=== PATIENT | male | born 1990 | race Caucasian/White ===

== ENCOUNTER 2016-06-08 02:41 | Inpatient (IN) | payer OTHER ==
[2016-06-08] VITALS (11 sets, daily range): BP systolic 112–149; BP diastolic 63–97
[~2016-06-08] VITALS: Ht 182.9 cm; Wt 99.8 kg
--- NOTE | 2016-06-08 02:58 | ED PSYCHIATRIC COMPLAINT ---
See Addendum History of Present Illness General Chief Complaint: ETOH/Drug Related Complaint Stated Complaint: BIBA ETOH,+SI Source: patient, old records, EMS Exam Limitations: intoxication Vital Signs & Intake/Output Vital Signs & Intake/Output Vital Signs Date Time Temp Pulse Resp B/P Pulse O2 O2 Flow FiO2 Ox Delivery Rate 06/08 0634 97.2 73 18 104/52 99 Room Air 06/08 0256 97.3 81 16 126/63 96 Room Air Allergies Coded Allergies: shellfish derived (Intermediate, ANAPHYLAXIS 08/20/15) fluticasone (From FLONASE) (OPPOSITE REACTION - EYES WATER, NOSE IS STUFFY, STUFFY THROA 08/19/15) Reconcile Medications No Known Home Medications Triage Note: PT BIBA S/P DUI ARREST FOR +SI STATEMENTS. PT PAPERED BY PD. DENIES SI UPON ARRIVAL. DENIES HI. HX OF MENTAL ILLNESS, DEPRESSION AND BIPOLAR. PT REPORTS DRINKING 6 BEERS AND 2 NIPS AND 1 LINE OF COCAINE. Triage Nurses Notes Reviewed? yes Onset: Last week Duration: day(s):, constant, continues in ED Timing: recent history Severity: moderate Associated Symptoms: suicidal ideation HPI: Stopped for driving under the influence and told officer he has been suicidal for the last several days. Admits to alcohol and marijuana cocaine use He denies fever chills nausea vomiting diarrhea abdominal pain chest pain shortness of breath headache dysuria rash bleeding homicidal ideation hallucination. (TELMA BERTRAND MD) Past History Travel History Traveled to [place] past 21 day No Medical History Any Pertinent Medical History? see below for history Neurological: NONE EENT: NONE Cardiovascular: NONE Respiratory: NONE Gastrointestinal: NONE Hepatic: NONE Renal: NONE Musculoskeletal: NONE Psychiatric: alcohol dependence, anxiety, bipolar disease, depression, substance abuse Endocrine: NONE Blood Disorders: NONE Cancer(s): NONE History of MRSA: No History of VRE: No History of CDIFF: No Surgical History Surgical History: non-contributory Psychosocial History Who do you live with Family Services at Home None What is your primary language Bruneian Tobacco Use: Current Daily Use Daily Tobacco Use Amount/Type: => 5 Cigarettes daily ETOH Use: heavy use Illicit Drug Use: cocaine Family History Hx Contributory? No (TELMA BERTRAND MD) Review of Systems Review of Systems Constitutional: Reports: no symptoms. EENTM: Reports: no symptoms. Respiratory: Reports: no symptoms. Cardiovascular: Reports: no symptoms. GI: Reports: no symptoms. Genitourinary: Reports: no symptoms. Musculoskeletal: Reports: no symptoms. Skin: Reports: no symptoms. Neurological/Psychological: Reports: see HPI, confusion, depressed, emotional problems. Hematologic/Endocrine: Reports: no symptoms. Immunologic/Allergic: Reports: no symptoms. All Other Systems: Reviewed and Negative (TELMA BERTRAND MD) Physical Exam Physical Exam General Appearance: well developed/nourished, alert, awake, anxious, mild distress Head: atraumatic, normal appearance Eyes: Bilateral: normal appearance, PERRL, EOMI. Ears, Nose, Throat: normal pharynx, normal ENT inspection, hearing grossly normal Neck: normal inspection, supple Respiratory: normal breath sounds Cardiovascular: regular rate/rhythm Gastrointestinal: soft, non-tender Extremities: normal range of motion Neurological/Psychiatric: no motor/sensory deficits, awake, agitated, alert, anxious, autotransfusionist II-XII nml as tested, oriented x 3 Appearance/Memory/Insight: disheveled, impaired insight Behavoir/Eye Contact/Speech: cooperative, compulsive, increased rate of speech Thoughts/Hallucinations: no apparent hallucination Skin: intact, normal color, warm/dry SAD PERSONS Done? patient not suicidal (TELMA BERTRAND MD) Progress Differential Diagnosis: drug intoxication, drug overdose, drug withdrawal, electrolyte abnormality, hypoglycemia Plan of Care: Orders Procedure Date/time Status Regular Diet 06/09 B Active Regular Diet 06/08 L Active Admit to inpatient psych 06/08 0858 Active Patient Data - inpatient psych 06/08 953 Active Admit to inpatient psych 06/08 953 Active EKG 06/08 953 Active Continuous Observation Monitor 06/08 0655 Active Continuous Observation Monitor 06/08 025 Active ED CRISIS PSYCH CONSULT 06/09 255 Active URINE DRUGS OF ABUSE 06/08 025 Complete ETHANOL 06/09 251 Complete COMPREHENSIVE METABOLIC PANEL 06/09 251 Complete CBC WITHOUT DIFFERENTIAL 06/09 251 Complete Vital Signs 06/08 UNK Active Nursing Misc 06/08 UNK Active CIWA 06/08 UNK Active Alternative Nursing Therapy 06/08 UNK Active Activity/Ambulation 06/08 UNK Active Current Medications Sig/Tayler Start time Last Medication Dose Stop Time Status Admin Al Hydroxide/Mg 30 ML Q4-6 PRN PRN 06/08 1000 AC Hydroxide (Maalox Plus) Ibuprofen 400 MG Q6PRN PRN 06/08 1000 UNVr (Motrin) Lorazepam 1 MG Q2 HRS NEEDED PRN 06/08 1000 UNVr (Ativan) Lorazepam 2 MG Q2 HRS NEEDED PRN 06/08 1000 UNVr (Ativan) Trazodone HCl 50 MG AT BEDTIME NEED.. 06/08 1000 UNVr (Desyrel) Laboratory Tests 06/08/16 0301: Anion Gap 17 H, Estimated GFR > 60, BUN/Creatinine Ratio 13.3, Glucose 93, Calcium 9.4, Total Bilirubin 0.5, AST 87 H, ALT 171 H, Alkaline Phosphatase 70 , Total Protein 7.7, Albumin 4.6, Globulin 3.1, Albumin/Globulin Ratio 1.5, CBC w Diff NO MAN DIFF REQ, RBC 5.79, MCV 91.5, MCH 30.3, RDW 13.4, MPV 7.8, Gran % 43.7, Lymphocytes % 45.7, Monocytes % 7.7, Eosinophils % 2.1, Basophils % 0.8, Absolute Granulocytes 4.2, Absolute Lymphocytes 4.4 H, Absolute Monocytes 0.7 H, Absolute Eosinophils 0.2, Absolute Basophils 0.1, PUBS MCHC 33.1, Serum Alcohol 216.0 06/08/16 0256: Methadone Screen Cancelled, Barbiturate Screen Cancelled, Ur Phencyclidine Scrn Cancelled, Amphetamines Screen Cancelled, U Benzodiazepines Scrn Cancelled, Urine Cocaine Screen Cancelled, Urine Cannabis Screen Cancelled 06/08/16 0253: Urine Opiates Screen < 100.00, Methadone Screen < 40, Barbiturate Screen < 60, Ur Phencyclidine Scrn < 6.00, Amphetamines Screen 113, U Benzodiazepines Scrn < 85, Urine Cocaine Screen > 1000 H, Urine Cannabis Screen > 80.00 H 06/08/2016 7:34:19 AM Patient signed out to me by Dr. Bertrand. Pending crisis evaluation. (DENTON MUNOZ,UYEN) Hand-Off Endorsed To: UYEN CHAWLA MD Endorsed Time: 0700 Pending: consult (TELMA BERTRAND MD) Departure Departure Disposition: STILL A PATIENT Condition: Stable Clinical Impression Primary Impression: Bipolar disorder current episode depressed Qualifiers: Current episode severity: severe Psychotic features: without psychotic features Qualified Code: F31.4 - Bipolar disorder, current episode depressed, severe, without psychotic features Secondary Impressions: Alcohol intoxication delirium, Cocaine abuse, Marijuana abuse, Suicidal ideation Referrals: ROSALBA ACOSTA MD Departure Forms: Customer Survey General Discharge Information Prescriptions: Current Visit Scripts No Known Home Medications (TELMA BERTRAND MD) Departure Time of Disposition: 957 Psych Admission Note Psychiatric Admission: I have seen and evaluated STEPHON ANAND. I have also reviewed all the pertinent lab results and diagnostic results. STEPHON ANAND will be admitted to our inpatient Psychiatric unit for treatment and care. (DENTON MUNOZ,UYEN)
[2016-06-08 03:25] LABS: ABSOLUTE BASOPHIL COUNT 0.1 /CUMM (0.0-0.2); ABSOLUTE EOSINOPHIL COUNT 0.2 /CUMM (0.0-0.7); ABSOLUTE GRANULOCYTE CT 4.2 /CUMM (1.4-6.5); ABSOLUTE LYMPH COUNT 4.4 /CUMM (1.2-3.4); ABSOLUTE MONOCYTE COUNT 0.7 /CUMM (0.10-0.60); BASOPHIL % 0.8 % (0.0-2.0); EOSINOPHIL % 2.1 % (0-5); GRANULOCYTE % 43.7 % (42.2-75.2); MEAN CORPUSCULAR HGB 30.3 PG (27.0-31.0); MEAN CORPUSCULAR HGB CONC 33.1 G/DL (33.0-37.0); MEAN CORPUSCULAR VOLUME 91.5 FL (80.0-94.0); MEAN PLATELET VOLUME 7.8 FL (7.4-10.4); PLATELET COUNT 248 /CUMM (130-400); RBC DISTRIBUTION WIDTH 13.4 % (11.5-14.5); RED BLOOD CELL CT 5.79 /CUMM (4.70-6.10); WHITE BLOOD CELL COUNT 9.6 /CUMM (4.8-10.8)
--- NOTE | 2016-06-08 08:55 | ED PSYCH CRISIS CONSULTATION ---
See Addendum Crisis Consult Basic Assessment Date of Consult: 06/08/16 Responsible Person/Accompanied By: self Insurance Authorization: Insurance #1: Insurance name: SHAILA CABALLERO Phone number: Policy number: [id number] Group number: Authorization number: ED Provider: Patient's ED Provider: TELMA BERTRAND MD Primary Care Physician: Patient's PCP: PATIENT HAS NO PRIMARY CARE DR PCP's Phone Number: Current Psychiatrist: none Chief Complaint: ETOH/Drug Related Complaint Patient's Quote: "I have suicidal thoughts non-stop" Present Illness: Pt. was a 25 year old , bearded male brought in to the ED after being pulled over by police for a DUI where he disclosed to the police that he had been feeling suicidal. He was not arrested or given a court date and was brought instead to the ED. Pt. reported he had been feeling suicidal for "years" and he had several attempts, one being a "couple months ago" when he "put a brick on his gas pedal in the garage" but the car during the attempt. Client stated in a very non-emotional and matter of fact way that he felt so suicidal that he would attempt in any way possible if released naming 'walking out into traffic or sticking his hand in a toaster' as methods of suicide. Pt. stated he spends most of his time "getting fucked up" so he doesn't have to feel anything. He stated he uses mainly alcohol and cocaine, last use being last night when he drank "alot" of alcohol and used 'a little" cocaine. He stated he used ecstasy "sometimes". Pt. reported he is diagnosed with Bipolar disorder and he attended [facility] in the past, as recently as last week but he stated he stopped going there because they "kept trying to feed him lithium" of which he stated the side effects were so bad (dry bleeding mouth, kidney problems and frequent blood tests). He stated he is not in treatment now. Patient's Address: [address] [place] [address] Other Phone Number: Who Do You Live With? Family Family/Informants Interviewed: Father interviewed. Mr. Santo Medeiros reported that his 25 year old adopted son had been having problems since he was a teenager. He stated his son "could potentially kill himself or someone else" with the way that he drives intoxicated. Father reported that son "goes off the deep end" frequently and drinks too much and threatens suicide. He stated his son lies often and it is difficult to tell when he is telling the truth. Father reported an incident a couple weeks ago when his son called him intoxicated from a parking lot and he spoke with him on the phone until he returned home and then spoke with him at home for another 2 hours because his son "needed to talk", he described significant mental health problems that neither he nor his could handle. he stated his son had attended a psychologist (name unknown) in [place] on Thursday "to get professional help". Father expressed desire to be invovled in his son's treatment if he was hospitalized here. Allergies - Coded Allergies: shellfish derived (Intermediate, ANAPHYLAXIS 08/20/15) fluticasone (From FLONASE) (OPPOSITE REACTION - EYES WATER, NOSE IS STUFFY, STUFFY THROA 08/19/15) Current Medications - No Known Home Medications Laboratory Results: Laboratory Tests 06/08/16 0301: Anion Gap 17 H, Estimated GFR > 60, BUN/Creatinine Ratio 13.3, Glucose 93, Calcium 9.4, Total Bilirubin 0.5, AST 87 H, ALT 171 H, Alkaline Phosphatase 70 , Total Protein 7.7, Albumin 4.6, Globulin 3.1, Albumin/Globulin Ratio 1.5, CBC w Diff NO MAN DIFF REQ, RBC 5.79, MCV 91.5, MCH 30.3, RDW 13.4, MPV 7.8, Gran % 43.7, Lymphocytes % 45.7, Monocytes % 7.7, Eosinophils % 2.1, Basophils % 0.8, Absolute Granulocytes 4.2, Absolute Lymphocytes 4.4 H, Absolute Monocytes 0.7 H, Absolute Eosinophils 0.2, Absolute Basophils 0.1, PUBS MCHC 33.1, Serum Alcohol 216.0 06/08/16 0256: Methadone Screen Cancelled, Barbiturate Screen Cancelled, Ur Phencyclidine Scrn Cancelled, Amphetamines Screen Cancelled, U Benzodiazepines Scrn Cancelled, Urine Cocaine Screen Cancelled, Urine Cannabis Screen Cancelled 06/08/16 0253: Urine Opiates Screen < 100.00, Methadone Screen < 40, Barbiturate Screen < 60, Ur Phencyclidine Scrn < 6.00, Amphetamines Screen 113, U Benzodiazepines Scrn < 85, Urine Cocaine Screen > 1000 H, Urine Cannabis Screen > 80.00 H Past History Past Medical History Neurological: NONE EENT: NONE Cardiovascular: NONE Respiratory: NONE Gastrointestinal: NONE Hepatic: NONE Renal: NONE Musculoskeletal: NONE Psychiatric: alcohol dependence, anxiety, bipolar disease, depression, substance abuse Endocrine: NONE Blood Disorders: NONE Cancer(s): NONE Past Surgical History Surgical History: non-contributory Psychosocial History Strengths/Capabilities: Pt has a supportive family. Pt is able to articulate his wants and needs. Pt has sought help and been engaged in treatment before in the past. Physical Limitations (Interventions): None identified Psychiatric Treatment History Psych Treatment Psychiatric Treatment Yes Inpatient Treatment Yes Outpatient Treatment Yes Location of Treatment [facility], Psychologist in [place] Reason for Treatment Bipolar Dates of Treatment various Response to Treatment doesn't stay in treatment Diagnosis by History: Bipolar D/O, ADHD Substance Use/Abuse History Drug Use/Abuse Substances Used/Abused Yes Substance Used/Abused Alcohol First Use unk Last Used last night How much used/taken "a lot" How often daily For how long "years" Substance Abuse Treatment Substance Abuse Treatment Past Substance Abuse [place] No Inpatient Treatment No Outpatient Treatment Yes Location of Treatment [facility] Current Mental Status Mental Status Orientation: Person, Place, Situation Affect: Flat, Inappropriate Speech: WNL Neuro-vegetative: Sleep Disturbance, WNL Appearance Appearance- Dress/Hygiene: neat haircut and greene trim, in hospital gown, no eye contact Behaviors Thought Process: WNL Thought Content: WNL Memory: WNL Insight: Poor SI/HI Risk Assessment Past Suicidal Ideation/Attempts Yes Current Suicidal Ideation/Att Yes Past Homicidal Ideation/Att: No Current Homicidal Ideation/Attempts No Degree of Intent: Plan, States Intent Danger To: Self Gravely Disabled: Lack of Insight, Poor Impulse Control, Poor Judgment Risk Factors: access to lethal means, high anxiety/distress, history of suicide atmpts, SA/MH hospitalized, poor impulse control, male Lethality Ratin PTSD Checklist PTSD Score: PTSD Score: Response Value Disturbing memories,thoughts,images of stressful experience? Not at all 1 Disturbing dreams of stressful experience from past? Not at all 1 Suddenly acting/feeling as if reliving stressful experience? Not at all 1 Unpleasant feeling when reminded of stressful experience? Not at all 1 Physical reactions when reminded of stressful experience? Not at all 1 Avoid thinking/talking of stressful exp. to avoid reactions? Not at all 1 Avoid activities/situations that remind of stressful exp.? Not at all 1 Trouble remembering important parts of stressful experience? Not at all 1 Loss of interest in things that you used to enjoy? Not at all 1 Feeling distant or cut off from other people? Not at all 1 Feeling emotionally numb/unable to love those close to you? Not at all 1 Feeling as if your future will somehow be cut short? Not at all 1 Trouble falling or staying asleep? Not at all 1 Feeling irritable or having angry outbursts? A little bit 2 Having difficulty concentrating? Not at all 1 Being super alert or watchful on guard? Not at all 1 Feeling jumpy or easily startled? Not at all 1 Total 18 ED Management Sitter: Yes Restraints: No DSM5/PS Stressors/Medical Prob Diagnosis' (DSM 5, Stressors, Medical): F31.4 Bipolar Disorder most recent depressed; Severe F10.24 Alcohol Use Disorder Severe F60.9 Personality unspec. Current GAF: 35 Departure Disposition Psych Medical Clearance Date: 06/08/16 Date Disposition Established: 06/08/16 Time Disposition Established: 943 Plan for Disposition - Modality: Inpatient Psychiatry Facility: [facility] Follow-up Appt Date: 06/08/16 Rationale for Disposition: Although pt. seems to be a significant substance abuser with a history of lying and manipulation, pt. is strongly expressing SI with a plan to "do anything in his power to commit suicide". Pt. to be admitted to inpatient. Type of IP Admission: Voluntary Referrals PATIENT HAS NO PRIMARY CARE DR (PCP/Family)
--- NOTE | 2016-06-08 10:11 | IP CRISIS DIAG ASSESS PSYCH ---
See Addendum Diagnostic Assessment Basic Assessment Patient's Quote: "I have suicidal thoughts non-stop" Present Illness: Pt. was a 25 year old , bearded male brought in to the ED after being pulled over by police for a DUI where he disclosed to the police that he had been feeling suicidal. He was not arrested or given a court date and was brought instead to the ED. Pt. reported he had been feeling suicidal for "years" and he had several attempts, one being a "couple months ago" when he "put a brick on his gas pedal in the garage" but the car during the attempt. Client stated in a very non-emotional and matter of fact way that he felt so suicidal that he would attempt in any way possible if released naming 'walking out into traffic or sticking his hand in a toaster' as methods of suicide. Pt. stated he spends most of his time "getting fucked up" so he doesn't have to feel anything. He stated he uses mainly alcohol and cocaine, last use being last night when he drank "alot" of alcohol and used 'a little" cocaine. He stated he used ecstasy "sometimes". Pt. reported he is diagnosed with Bipolar disorder and he attended Care in the past, as recently as last week but he stated he stopped going there because they "kept trying to feed him lithium" of which he stated the side effects were so bad (dry bleeding mouth, kidney problems and frequent blood tests). He stated he is not in treatment now. Patient's Address: [address] [place] [address] Other Phone Number: Who Do You Live With? Family Feel Safe Where You Live? Yes Feel Safe in Your Relationship Yes Marital Status: single Do You Have Children? No Primary Language? Greenlandic Language(s) Spoken At Home: Greenlandic Family/Informants Interviewed: Father interviewed. Mr. Santo Medeiros reported that his 25 year old adopted son had been having problems since he was a teenager. He stated his son "could potentially kill himself or someone else" with the way that he drives intoxicated. Father reported that son "goes off the deep end" frequently and drinks too much and threatens suicide. He stated his son lies often and it is difficult to tell when he is telling the truth. Father reported an incident a couple weeks ago when his son called him intoxicated from a parking lot and he spoke with him on the phone until he returned home and then spoke with him at home for another 2 hours because his son "needed to talk", he described significant mental health problems that neither he nor his could handle. he stated his son had attended a psychologist (name unknown) in [place] on Thursday "to get professional help". Father expressed desire to be invovled in his son's treatment if he was hospitalized here. Father stated son is adopted and alluded to the fact that his biological mother may have had mental health and substance abuse issues, stating that she had lived in the area but her body was found (murdered) in a quarry in [place] "a couple years ago ". Allergies - Coded Allergies: shellfish derived (Intermediate, ANAPHYLAXIS 08/20/15) fluticasone (From FLONASE) (OPPOSITE REACTION - EYES WATER, NOSE IS STUFFY, STUFFY THROA 08/19/15) Current Medications - No Known Home Medications Consequences of Psych Med Use: non-compliant Lab Results: Laboratory Tests 06/08/16 0301: Anion Gap 17 H, Estimated GFR > 60, BUN/Creatinine Ratio 13.3, Glucose 93, Calcium 9.4, Total Bilirubin 0.5, AST 87 H, ALT 171 H, Alkaline Phosphatase 70 , Total Protein 7.7, Albumin 4.6, Globulin 3.1, Albumin/Globulin Ratio 1.5, CBC w Diff NO MAN DIFF REQ, RBC 5.79, MCV 91.5, MCH 30.3, RDW 13.4, MPV 7.8, Gran % 43.7, Lymphocytes % 45.7, Monocytes % 7.7, Eosinophils % 2.1, Basophils % 0.8, Absolute Granulocytes 4.2, Absolute Lymphocytes 4.4 H, Absolute Monocytes 0.7 H, Absolute Eosinophils 0.2, Absolute Basophils 0.1, PUBS MCHC 33.1, Serum Alcohol 216.0 06/08/16 0256: Methadone Screen Cancelled, Barbiturate Screen Cancelled, Ur Phencyclidine Scrn Cancelled, Amphetamines Screen Cancelled, U Benzodiazepines Scrn Cancelled, Urine Cocaine Screen Cancelled, Urine Cannabis Screen Cancelled 06/08/16 0253: Urine Opiates Screen < 100.00, Methadone Screen < 40, Barbiturate Screen < 60, Ur Phencyclidine Scrn < 6.00, Amphetamines Screen 113, U Benzodiazepines Scrn < 85, Urine Cocaine Screen > 1000 H, Urine Cannabis Screen > 80.00 H Toxicology Screen Completed? Yes Results: positive Symptoms of Use: "heartburn everyday and puking" which client attributed only to heartburn but may be due to daily heavy drinking. Past History Past Medical History Medical History: Unobtainable Past Surgical History Surgical History none Abuse/Trauma History Trauma History/Current Trauma: Denies Patient's Age at Time of Trauma: 0 History of Trauma/Abuse Treatment? No Abuse/Trauma Treatment: Denies, pt states he is trying the ebst he can to answer questions but is feelign tired. Legal History Current Legal Status: none Have you ever been arrested? Yes Number of Arrests: [address] Dates: Client was pulled over on a DUI but was not arrested or given a court date but was brought to the ED for SI. Psychosocial History Strengths/Capabilities: Pt has a supportive family. Pt is able to articulate his wants and needs. Pt has sought help and been engaged in treatment before in the past. Physical Limitations (Interventions): None identified Psychiatric Treatment History Psych Treatment Psychiatric Treatment Yes Inpatient Treatment Yes Outpatient Treatment Yes Location of Treatment [facility], Psychologist in [place] Reason for Treatment Bipolar Dates of Treatment various Response to Treatment doesn't stay in treatment Diagnosis by History: Bipolar D/O, ADHD Risk Factors: access to lethal means, high anxiety/distress, history of suicide atmpts, SA/MH hospitalized, poor impulse control, male Substance Use/Abuse History Drug Use/Abuse minimum 12mo Hx Substances Used/Abused Yes Substance Used/Abused Alcohol First Use unk Last Used last night How much used/taken "a lot" How often daily For how long "years" Substance Abuse Treatment Substance Abuse Treatment Past Substance Abuse [place] No Inpatient Treatment No Outpatient Treatment Yes Location of Treatment [facility] Sexual History Sexually Active No # of partners 2 Use of Protection Yes Sometimes Sexual Concerns: None at this time Education History Highest Level of Education: some college Preferred Learning Style: visual Current Mental Status Mental Status Orientation: Person, Place, Situation Affect: Flat, Inappropriate Speech: WNL Neuro-vegetative: Sleep Disturbance, WNL Appearance Appearance- Dress/Hygiene: neat haircut and greene trim, in hospital gown, no eye contact Behaviors Thought Process: WNL Thought Content: WNL Memory: WNL Insight: Poor SI/HI Risk Assessment - Minimum 6mo History- Past Suicidal Ideation/Attempts Yes Current Suicidal Ideation/Att Yes Past Homicidal Ideation/Att: No Current Homicidal Ideation/Attempts No Degree of Intent: Plan, States Intent Danger To: Self Gravely Disabled: Lack of Insight, Poor Impulse Control, Poor Judgment Risk Factors: access to lethal means, high anxiety/distress, history of suicide atmpts, SA/MH hospitalized, poor impulse control, male Lethality Ratin Needs/Init TX Plan/Goals: pt. will acclimate to the inpatient milieu Pt. will meet with SW and psychiatrist Pt. will attend groups on unit. Pt. will be invovled in family treatment while on unit. AUDIT-C Questionnaire: AUDIT-C Questionnaire: Response Value ETOH use in the past year 4 or more per week 4 # drinks typical/day 7-9 3 6 or > drinks per occasion Daily/Almost Daily 4 Total 11 DSM5/PS Stressors/Medical Prob Diagnosis' (DSM 5, Stressors, Medical): F31.4 Bipolar Disorder most recent depressed; Severe F10.24 Alcohol Use Disorder Severe F60.9 Personality unspec. Current GAF: 35
--- NOTE | 2016-06-08 14:19 | History & Physical ---
General Information and HPI History of Present Illness: Patient is a 25-year-old male medical history significant for bipolar disorder, polysubstance abuse and alcohol dependence. He was pulled over by police for driving on the influence at which point he disclosed the police that he was feeling suicidal. He was not taken to the police station borrows rather brought to the emergency room where he reported feeling suicidal for several years with attempts in the past and recently. Was admitted to the inpatient psychiatric service for further management. Patient reports that in January 2016 when being worked up for admission to a alf he was found to be PPD positive. He had no respiratory complaints other than his chronic cough related to chronic smoking. Chest x-ray at the time was negative. These results are available here in our system. He was started on INH to complete 9 months of therapy. He reports that he has been poorly compliant with his medication recently. Last pharmacy refill was back in April. Denies nausea or vomiting. Denies diarrhea or constipation. Denies bloody stools or black stools. Denies dysuria or hematuria. Denies heat or cold intolerance. Admits to chronic cough productive of white phlegm. Reports cramping chest pain on the left occasionally following repeated coughing. All other review of systems dementia. Allergies/Medications Allergies: Coded Allergies: shellfish derived (Intermediate, ANAPHYLAXIS 08/20/15) fluticasone (From FLONASE) (OPPOSITE REACTION - EYES WATER, NOSE IS STUFFY, STUFFY THROA 08/19/15) Home Med list No Known Home Medications Past History Travel History Traveled to [place] past 21 day No Medical History Neurological: NONE EENT: NONE Cardiovascular: NONE Respiratory: NONE Gastrointestinal: NONE Hepatic: NONE Renal: NONE Musculoskeletal: NONE Psychiatric: alcohol dependence, anxiety, bipolar disease, depression, substance abuse Endocrine: NONE Blood Disorders: NONE Cancer(s): NONE Other Medical Hx: PPD positive History of MRSA: No History of VRE: No History of CDIFF: No Isolation History: Standard Surgical History Surgical History: non-contributory Past Family/Social History Psychosocial History Where do you live? Home Who Do You Live With? parent Services at Home: None Primary Language: Spanish ETOH Use: heavy use Illicit Drug Use: cocaine Functional Ability ADLs Independent: dressing, eating, toileting, bathing. Ambulation: independent IADLs Independent: shopping, housework, finances, food prep, telephone, transportation , medication admin. Review of Systems Review of Systems Constitutional: Denies: see HPI. Exam & Diagnostic Data Last 24 Hrs of Vital Signs/I&O Vital Signs Date Time Temp Pulse Resp B/P Pulse O2 O2 Flow FiO2 Ox Delivery Rate 06/08 1233 98.0 96 144/81 06/08 1140 97.3 100 16 116/64 04 1139 97.3 100 16 116/64 95 Room Air Room Air 06/08 1014 97.9 116 15 145/70 06/08 1011 97.9 116 15 145/70 97 Room Air Room Air 06/08 0634 97.2 73 18 104/52 99 Room Air 06/08 0256 97.3 81 16 126/63 96 Room Air Intake & Output 06/08 1600 06/08 0800 06/08 0000 Intake Total Output Total Balance Patient 99.79 kg 99.79 kg Weight Physical Exam General Appearance Alert, Oriented X3, Cooperative, No Acute Distress Skin No Rashes, No Breakdown, No Significant Lesion HEENT Atraumatic, PERRLA, EOMI, Mucous Membr. moist/pink Neck Supple, No thryomegaly, +2 Carotid Pulse wo Bruit Cardiovascular Regular Rate, Normal S1, Normal S2, No Murmurs Lungs Normal Air Movement, mild bilateral rhonchi. Abdomen Normal Bowel Sounds, Soft, right upper quadrant tenderness. No rebound or guarding. Liver edge palpable below the costophrenic angle. Neurological Exam Findings: Normal Gait, Normal Speech, Strength at 5/5 X4 Ext, Normal Tone Cranial Nerves II through XII: Within normal limits. Extremities No Clubbing, No Cyanosis, No Edema Vascular Normal Pulses Assessment/Plan Assessment: 25-year-old male with history of polysubstance abuse, bipolar disorder and alcoholism admitted to the inpatient psychiatric unit after being pulled over by police for DUI and then reporting suicide ideation. History of PPD positive in January 2016 on chronic INH therapy. Noncompliant. Found here to have transaminitis which is new from his last labs in August 2015 and tender liver on examination. Problems: 1. Transaminitis 2. PPD positive 3. Polysubstance abuse/alcohol abuse/bipolar disorder Plan: -Obtain right upper quadrant sonogram to rule out other structural hepatobiliary disease. -Obtain amylase and lipase levels. -Repeat LFTs tomorrow. -His father verbalizes a probably due to alcohol use given his significant history of alcohol abuse. He treats 1 pint of vodka daily. Also he reports not using his INH several weeks. However his transaminitis ratio is not consistent with alcohol. Cc darryl low uses medication in a while it is more prudent to continue to hold his INH while repeating his labs. I need therapy may be resumed upon discharge if the liver enzymes are trending down. His transaminitis remains significant at the time of discharge consideration has to be made for switching is latent TB therapy. -At this point in time there is no need for isolation precautions other than standard general precautions. -Please provide patient with a referral to the [facility] plan outpatient service upon discharge. He currently reports that he gets his prescription for INH from a walk-in clinic. -Continue management of his alcoholism, previous ulcers abuse and bipolar disorder as directed by the psychiatric service. As Ranked By This Provider Problem List: 1. Bipolar disorder 2. Alcohol intoxication Miscellaneous Miscellaneous Documentation Attending Case Discussed With: MYRIAM MUNOZ PHD,OSCAR MARCANO Primary Care Physician: PATIENT HAS NO PRIMARY CARE DR Patient sees these Specialists None. Level of Patient Care: [facility]
--- NOTE | 2016-06-08 14:19 | CPS MD/APRN INITIAL ASSE PSYCH ---
Psychiatric Admission Ammonium Hydroxide Operator's Note Reviewed: Yes Patient Seen and Examined: Yes Identifying Information: 25-year-old domiciled, unemployed, single man with long-standing history of severe substance use disorders including alcohol and cocaine as well as per patient dx of bipolar disorder. Chief Complaint: "I have suicidal thoughts nonstop " Reaction to Hospitalization: Patient requests inpatient hospitalization History of Present Illness Onset of Illness: Long-standing mood instability accompanied by severe alcohol and substance use Circumstances Leading to Admission: Patient was pulled over by police for driving erratically, found to be intoxicated, reported current suicidality and brought to [facility] for evaluation. On evaluation patient endorses severely depressed mood with suicidal thoughts with plan to harm himself and reported recent attempts to harm himself. This is in the context of ongoing substance use and history of risk- taking behaviors. Problem(s) Justifying Need for Admission: Depressed mood, suicidal ideation with plan and intent, reported recent attempts to harm or kill himself. Past Psychiatric History Past Diagnosis(es)- if any: Bipolar disorder, unspecified Alcohol use disorder, severe Stimulant use disorder (cocaine), severe Past Precipitating Factors- if any: Substance abuse - Include inpatient and outpatient treatment Treatment History: Most recent known inpatient psychiatric hospitalization is to [facility] in August 2015. At that time he presented to the hospital under very similar circumstances including depression with suicidal ideation in context of ongoing alcohol use. He was treated with an Ativan taper started on lithium and Zyprexa was continued, he was discharged on lithium 750 mg twice a day as well as Zyprexa 15 mg nightly. Most recently outpatient treatment through care which he is recently discontinued as care wanted him to continue taking lithium which the patient refuses to do due to side effects In terms of substance use treatment, was referred to AA meetings after his current hospitalization, as well as previously attended a program at [facility] for few days before leaving. History of Suicide Attempts or Gestures Reports multiple attempts to harm or kill himself in the past, including a most recent attempt to asphyxiate himself in a garage with the car Substance Abuse History: Chronic alcohol, cocaine, cannabis use Reports, "a lot "of alcohol daily, when asked him to clarify he reports "a bottle of liquor "a day. Also notes almost daily cocaine use, always insufflated, denies smoking or injecting cocaine. Daily or mostly daily cannabis use Allergies: Coded Allergies: shellfish derived (Intermediate, ANAPHYLAXIS 08/20/15) fluticasone (From FLONASE) (OPPOSITE REACTION - EYES WATER, NOSE IS STUFFY, STUFFY THROA 08/19/15) Home Med List: Denies taking any current home medications - Include any medical condition(s) that may - impact the patient's recovery/remission Past History Medical History Neurological: NONE EENT: NONE Cardiovascular: NONE Respiratory: NONE Gastrointestinal: NONE Hepatic: NONE Renal: NONE Musculoskeletal: NONE Psychiatric: alcohol dependence, anxiety, bipolar disease, depression, substance abuse Endocrine: NONE Blood Disorders: NONE Cancer(s): NONE History of MRSA: No History of VRE: No History of CDIFF: No Isolation History: Standard Surgical History Surgical History: none Psychiatric Family/Social Hx Family History Psychiatric Illness: Patient adopted Substance Use: Patient adopted Suicides: Patient adopted Social History Living Situation: Lives with family Significant Relationships (family/friends): Family Education: Says he has some college Vocation/Occupation: Currently unemployed Legal: Pulled over by police for erratic driving and contraband of influence however we have confirmed that he does not have any known court dates. This is confirmed by checking the [place] judicial website. Healthly Behaviors Screening Tobacco Screening Tobacco Use from ED Docu: Current Daily Use Daily Tobacco Use Amount/Type: => 5 Cigarettes daily - If tobacco counseling indicated - the following topics are required. - #1 Recognizing dangerous situations. - #2 Coping Skills. - #3 Basic information about quitting. Status of Tobacco Cessation Counseling: #1, #2 AND #3 Completed Cessation Med Status: Nicotine Patch Ordered Alcohol Screening - ETOH screen POS if BAL >=80 or Audit-C>= M4/F3 Audit-C Score from Diag Assess: 11 Blood Alcohol Level: Laboratory Tests 06/08 0301 Toxicology Serum Alcohol (<10 MG/DL) 216.0 Alcohol Use Screening Results: Pos per Audit C &/or BAL - If ETOH counseling indicated - the following topics are required. - #1 Express concern about the patient's - drinking at unhealthy levels, include informing - of national norms for moderate drinking: - men <= 14 drinks/week, max 4 drinks/occasion - women <= 7 drinks/week, max 3 drinks/occasion - #2 Providing feedback, including linking alcohol to - negative physical effects (liver injury, hypertension) - negative emotional effects (relationship problems and - depression) - negative occupational consequences (reduced work - performance) - #3 Advising the patient to abstain from alcohol or - to drink below national norms for moderate drinking - (as listed above). Status of ETOH Use Counseling: #1, #2 AND #3 Completed. Metabolic Screening - Screen if on a Neuroleptic Medication - Metabolic screening should include: - Blood Pressure, BMI, Glucose or Hgb A1c, & a - Lipid profile from within the past 365 days. Metabolic Screening () Not Applicable, patient not on a neuroleptic. Exam and Plan Mental Status Examination Ambulation Status: Stable Appearance: Disheveled Attitude towards examiner: Mildly uncooperative Psychomotor activity: Psychomotor retardation Behavior: Mainly laying on hospital bed Quality of speech: Robotic prosody Affect: Constricted, irritable Mood: "Depressed " Suicidal Ideation: Admits to suicidal ideation with intent to end his life via multiple plans Homicidal Ideation: Denies Hallucinations: Denies Paranoid/Delusional Material: Denies Difficulties with thought organization: Perhaps some impoverishment of thought but no overt difficulties with thought organization Insight: Limited Judgment: Limited Orientation: To person and place Cognition: Grossly intact Memory Function: Grossly intact Estimate of intellectual functioning: Average Assets/Strengths Patient Identified Assets/Strengths: Supportive family Impression/Plan Impression and Plan: 25-year-old man with history of unspecified bipolar disorder as well as severe alcohol and stimulant use disorders presenting to [facility] after an interaction with police where he was pulled over due to suspicion of driving under the influence and revealed ongoing severe depression and suicidality. His degree of depression as well as his endorsement of multiple attempts to recently end his life and description of again desiring to end his life warrants inpatient hospitalization for safety, especially in the context of significant alcohol and substance use. - Include all active medical diagnosis that require tx DSM 5 Diagnosis(es): Bipolar disorder, unspecified, most recent episode depressed Alcohol use disorder, severe Stimulant use disorder, severe cannabis use disorder, severe Nicotine use disorder - Initial Tx Plan for Active Psych & Medical Conditions Treatment Plan: Admit to inpatient psychiatry 15 minute checks appropriate Monitor CIWAs and medicate with benzodiazepines as needed Nicotine replacement Zyprexa when necessary for severe agitation Defer initiation of standing psychotropics to primary team Further collateral will be beneficial as well as family meeting Check TSH Identifying outpatient treatment resources - Factors that would help patient function - in a less restrictive setting. Factors: Amelioration of SI, improvement in mood, identification or outpatient treatment resources
[2016-06-09] VITALS (10 sets, daily range): BP systolic 106–156; BP diastolic 59–88
--- NOTE | 2016-06-09 07:55 | SOCIAL WORKER SOCIAL HX PSYCH ---
Social History Basic Assessment Curr Source of Income/Entitlements: basic needs (no income reported) Present Problem: Pt. was a 25 year old , bearded male brought in to the ED after being pulled over by police for a DUI where he disclosed to the police that he had been feeling suicidal. He was not arrested or given a court date and was brought instead to the ED. Pt. reported he had been feeling suicidal for "years" and he had several attempts, one being a "couple months ago" when he "put a brick on his gas pedal in the garage" but the car during the attempt. Client stated in a very non-emotional and matter of fact way that he felt so suicidal that he would attempt in any way possible if released naming 'walking out into traffic or sticking his hand in a toaster' as methods of suicide. Pt. stated he spends most of his time "getting fucked up" so he doesn't have to feel anything. He stated he uses mainly alcohol and cocaine, last use being last night when he drank "alot" of alcohol and used 'a little" cocaine. He stated he used ecstasy "sometimes". Pt. reported he is diagnosed with Bipolar disorder and he attended [facility] in the past, as recently as last week but he stated he stopped going there because they "kept trying to feed him lithium" of which he stated the side effects were so bad (dry bleeding mouth, kidney problems and frequent blood tests). He stated he is not in treatment now. Father interviewed. Mr. Santo Medeiros reported that his 25 year old adopted son had been having problems since he was a teenager. He stated his son "could potentially kill himself or someone else" with the way that he drives intoxicated. Father reported that son "goes off the deep end" frequently and drinks too much and threatens suicide. He stated his son lies often and it is difficult to tell when he is telling the truth. Father reported an incident a couple weeks ago when his son called him intoxicated from a parking lot and he spoke with him on the phone until he returned home and then spoke with him at home for another 2 hours because his son "needed to talk", he described significant mental health problems that neither he nor his could handle. he stated his son had attended a psychologist (name unknown) in [place] on [address] "to get professional help". Father expressed desire to be invovled in his son's treatment if he was hospitalized here. Father stated son is adopted and alluded to the fact that his biological mother may have had mental health and substance abuse issues, stating that she had lived in the area but her body was found (murdered) in a quarry in [place] "a couple years ago". HUSSEIN MIGUEL TURNAROUND ENGINEER> 06/08/16 Primary Language? Vietnamese Language(s) Spoken At Home: Vietnamese Living Situation Other Living Arrangement: lives with family Feel Safe Where You Are Living Yes Feel Safe in Relationships? Yes Allergies - Coded Allergies: shellfish derived (Intermediate, ANAPHYLAXIS 08/20/15) fluticasone (From FLONASE) (OPPOSITE REACTION - EYES WATER, NOSE IS STUFFY, STUFFY THROA 08/19/15) Current Medications - No Known Home Medications Past History Past Medical History Neurological: NONE EENT: NONE Cardiovascular: NONE Respiratory: NONE Gastrointestinal: NONE Hepatic: NONE Renal: NONE Musculoskeletal: NONE Psychiatric: alcohol dependence, anxiety, bipolar disease, depression, substance abuse Endocrine: NONE Blood Disorders: NONE Cancer(s): NONE Past Surgical History Surgical History: non-contributory /Family History Place/Country of Origin: [facility], [place] Childhood Family Constellation: parents and younger sister Primary Childhood Caretakers: father, mother Family Life During Childhood: "fine" DCF Involvement? No Relationship w/Mother: "we work together" Relationship w/Father: "we work good together, its fine" Any Sibling(s)? Yes Sibling's Gender(s)/Age(s): female Sibling 1: Relationship w/Sibling(s): "good" younger than me she is 21. Relationship w/Friends: No friends right now, I really have a hard time dealing with people. Family Psych/Sub Abuse/Add Hx: Denies Abuse/Trauma History Trauma History/Current Trauma: Denies Patient's Age at Time of Trauma: 0 History of Trauma/Abuse Treatment? No Abuse/Trauma Treatment: Denies, pt states he is trying the ebst he can to answer questions but is feelign tired. Legal History Legal Guardian/Address/Phone: Denies Have you ever been arrested Yes Number of Arrests: 1 Hx of Juvenile Legal Charges? No Hx of Adult Legal Charges? No Civil Proceedings: Denies Domestic Relations Court: Denies Child Protective Serv Involvmnt Denies Psychosocial History Primary Support System: father, mother Strengths/Capabilities: Pt has a supportive family. Pt is able to articulate his wants and needs. Pt has sought help and been engaged in treatment before in the past. Physical Limitations (Interventions): None identified Last Physical: 17 years old History of Blackouts? No ADL Limitations: Can't keep up with independent living skills when non compliant with meds and using etoh regularly. [place]/Social/Peer Relations I don't feel I can be social right now. Meaningful Activities: I cant think of any Childhood Druze: no gnosticist stated Current Moravian Affiliation: no gnosticist stated Is Spirituality Important to You? Not now. Patient's Ethnicity: ("Palauan") Cultural/Ethnic Issues: Denies Are There Developmental Issues? No Milestones Achieved: fine motor, gross motor Psychiatric Treatment History Psych Treatment Inpatient Treatment Yes Outpatient Treatment Yes Location of Treatment [facility], Psychologist in [place] Reason for Treatment Bipolar Dates of Treatment various Response to Treatment doesn't stay in treatment Diagnosis: Bipolar D/O, ADHD Psychodynamic Issues: Unsure [facility], and has not been sober since he was 15 years old. Risk Factors: access to lethal means, high anxiety/distress, history of suicide atmpts, SA/MH hospitalized, poor impulse control, male Substance Use/Abuse History Drug Use/Abuse Substance Used/Abused Alcohol First Use unk Last Used last night How much used/taken "a lot" How often daily For how long "years" Have You Ever Attended ? Yes Symptoms of Use: "heartburn everyday and puking" which client attributed only to heartburn but may be due to daily heavy drinking. Substance Abuse Treatment Substance Abuse Treatment Inpatient Treatment No Outpatient Treatment Yes Location of Treatment [facility] Sexual History Sexually Active No # of partners 2 Use of Protection Yes Sometimes Sexual Concerns: None at this time Education History Highest Level of Education: some college Highest Grade Completed: Semesters in [employer] Vocational Year Completed: Denies Number of College Years: 1 Preferred Learning Style: visual HX of Learning Difficulties: None reported Barriers to Learning: None reported Special Communication Needs: None reported Employment History Not in Labor Force: Pt just got a job at [employer] Attendance: Absenteeism Performance: Below Average History Have You Been in The ? No Current Mental Status Problem List: 1. Bipolar disorder 2. Suicidal ideation Mental Status Orientation: Person, Place, Situation Affect: Flat, Inappropriate Speech: WNL Neuro-vegetative: Sleep Disturbance, WNL Appearance Appearance- Dress/Hygiene: neat haircut and greene trim, in hospital gown, no eye contact Behaviors Thought Process: WNL Thought Content: WNL Memory: WNL Insight: Poor SI/HI Risk Assessment Past Suicidal Ideation/Attempts Yes Current Suicidal Ideation/Att Yes Past Homicidal Ideation/Att: No Current Homicidal Ideation/Attempts No Degree of Intent: Plan, States Intent Danger To: Self Gravely Disabled: Lack of Insight, Poor Impulse Control, Poor Judgment Risk Factors: High Anxiety/Distress, SA/MH Hospitalization(s), Hx of suicide attempt(s), Male, Poor impulse control, Substance Abuse Lethality Ratin - Conclusion and Recommendations for treatment - and discharge planning Summary: Pt. was a 25 year old , bearded male brought in to the ED after being pulled over by police for a DUI where he disclosed to the police that he had been feeling suicidal. He was not arrested or given a court date and was brought instead to the ED. Pt. reported he had been feeling suicidal for "years" and he had several attempts, one being a "couple months ago" when he "put a brick on his gas pedal in the garage" but the car during the attempt. Client stated in a very non-emotional and matter of fact way that he felt so suicidal that he would attempt in any way possible if released naming 'walking out into traffic or sticking his hand in a toaster' as methods of suicide. Pt. stated he spends most of his time "getting fucked up" so he doesn't have to feel anything. He stated he uses mainly alcohol and cocaine, last use being last night when he drank "alot" of alcohol and used 'a little" cocaine. He stated he used ecstasy "sometimes". Pt. reported he is diagnosed with Bipolar disorder and he attended [facility] in the past, as recently as last week but he stated he stopped going there because they "kept trying to feed him lithium" of which he stated the side effects were so bad (dry bleeding mouth, kidney problems and frequent blood tests). He stated he is not in treatment now. Father interviewed. Mr. Santo Medeiros reported that his 25 year old adopted son had been having problems since he was a teenager. He stated his son "could potentially kill himself or someone else" with the way that he drives intoxicated. Father reported that son "goes off the deep end" frequently and drinks too much and threatens suicide. He stated his son lies often and it is difficult to tell when he is telling the truth. Father reported an incident a couple weeks ago when his son called him intoxicated from a parking lot and he spoke with him on the phone until he returned home and then spoke with him at home for another 2 hours because his son "needed to talk", he described significant mental health problems that neither he nor his could handle. he stated his son had attended a psychologist (name unknown) in [place] on Thursday "to get professional help". Father expressed desire to be invovled in his son's treatment if he was hospitalized here. Father stated son is adopted and alluded to the fact that his biological mother may have had mental health and substance abuse issues, stating that she had lived in the area but her body was found (murdered) in a quarry in [place] "a couple years ago". HUSSEIN MIGUEL TURNAROUND ENGINEER> 06/08/16
--- NOTE | 2016-06-09 13:27 | CP SOUTH PROGRESS NOTE PSYCH ---
Psych (Inpt) Progress Note Progress Note Include the following elements, when applicable: Involvement in the active treatment of the patient with behavioral observations of the patient and the patient's response to the treatment. Review of the ongoing treatment process in the context of the treatment plan. Indication of how multi-disciplinary staff members are carrying out the treatment plan. Plans for future interventions and recommendations for revision of the treatment plan. Liaison with other physicians/providers. Progress Note: [I discussed this patient's progress to date, current mental status, treatment process in the context of the treatment plan, and discharge planning with staff/ team in the daily morning inpatient team meeting. I also met with the patient myself in individual session.] S: "I feel like sh*t." O: Current Medications Sig/Tayler Start time Last Medication Dose Route Stop Time Status Admin Al Hydroxide/Mg 30 ML Q4-6 PRN PRN 06/08 1000 AC Hydroxide PO Folic Acid 1 MG 06/09 09 AC 06/09 PO 06/12 0801 0940 Hydroxyzine HCl 50 MG Q6-PRN PRN 06/08 1615 AC 06/08 PO 1858 Ibuprofen 400 MG Q6PRN PRN 06/08 1000 AC 06/09 PO 1309 Lorazepam 0.5 MG 08,06/12 0800 AC PO 06/12 2000 Lorazepam 0.5 MG Q6 06/11 0600 AC PO 06/11 2359 Lorazepam 1 MG Q8 06/10 0600 AC PO 06/10 2201 Lorazepam 1 MG Q6 06/09 0915 AC 06/09 PO 06/09 2359 1230 Lorazepam 1 MG Q6-PRN PRN 06/08 1615 DC PO Lorazepam 1 MG Q2 HRS NEEDED PRN 06/08 1000 AC 06/08 PO 2152 Lorazepam 2 MG Q2 HRS NEEDED PRN 06/08 1000 AC 06/08 PO 1959 Multivitamins 1 TAB 06/09 0900 AC 06/09 PO 0940 Nicotine 2 MG Q2 HRS NEEDED PRN 06/08 1615 AC PO Nicotine 21 MG DAILY 06/08 1301 AC 06/09 TOP 0849 Olanzapine 5 MG 06/09 2200 AC PO Ondansetron HCl 4 MG ONCE ONE 06/09 1030 DC 06/09 PO 06/09 1031 1033 Thiamine HCl 100 MG 06/09 0900 AC 06/09 PO 06/12 0801 0939 Trazodone HCl 50 MG AT BEDTIME NEED.. 06/08 2200 AC PO Vital Signs Date Time Temp Pulse Resp B/P Pulse O2 O2 Flow FiO2 Ox Delivery Rate 06/09 1411 93 139/80 06/09 1232 98 109/59 06/09 1229 98 109/59 06/09 1022 97.1 95 141/78 06/09 0758 96.7 86 138/78 06/09 0756 96.7 86 138/78 06/08 2356 96.7 89 139/97 06/08 2307 68 127/63 06/08 2149 90 135/80 06/08 2010 98.1 97 149/83 06/08 2004 98.1 97 149/83 06/08 1656 99 132/78 06/08 1637 99 132/78 Laboratory Tests 06/09 06/08 06/08 0536 1500 1500 Chemistry Total Bilirubin (0.2 - 1.3 mg/dL) 0.9 Direct Bilirubin (< 0.4 mg/dL) 0.2 AST (17 - 59 U/L) 60 H ALT (21 - 72 U/L) 142 H Alkaline Phosphatase (< 127 U/L) 65 Total Protein (6.3 - 8.2 g/dL) 6.8 Albumin (3.5 - 5.0 g/dL) 4.1 Amylase (30 - 110 U/L) Cancelled < 30 L Lipase (23 - 300 U/L) 84 TSH (0.270 - 4.200 uIU/mL) 2.510 A: Chart, progress notes, VS, labs, CIWA scores (last 24 hours: 6-3-40-03-0-4-5-4-2 ), and medication list were reviewed. HR mildly tachy 95 -98. BP wnl. AST and ALT trending down but remain elevated. TSH wnl. Patient is a 25-year-old domiciled, unemployed, single man with long- standing history of severe alcohol and cocaine use disorder, and a history of bipolar disorder. He presented to ED by police after found intoxicated, driving erratically and reported SI. Patient had been previously hospitalized on [facility] in August 2015 for depression/SI in the setting of chronic alcohol use. He had been started on Zyprexa and Colcord with good effect; he also had been started on an ativan taper for alcohol withdrawal which was well tolerated. Patient reported recently discontinuing outpatient treatment at [facility] due to their recommendation that he remain on Colcord 750mg twice daily, which he refused given multiple vague side effects and difficulty adhering to routine blood draws. Patient reported he would not take any medications requiring blood work as it was too difficult for him to remember to complete. Met with Fernando, for the first time today on [facility]. He was initially observed resting in room but was arousable to voice and agreeable to meeting with me in office. Affect was calm and constricted. Speech was normal in rate, tone and volume. Eye contact was mostly appropriate, with occasional hesitance. Mood was "depressed." Reported being "tired of living like this (chronic drug/alcohol abuse)." Patient reported passive suicidal ideation, denied plans or intent. Reported endorsing chronic suicidal thoughts for "years". Reported no benefit from prior trial on Colcord, "only made me sick." He gave a safety promise while on unit and reported feeling safe here. He denied homicidal ideation, auditory and visual hallucinations. There was no evidence of paranoia or nilton delusions. He reported feeling hopeless about staying sober. He presently reported feeling helpless. He denied feeling worthless or guilty. Anixety: 7/10 (10 being the worst); Depression: 8/10 (10 being the worst). Thought process was organized. Thought content was appropriate. Cognition was grossly intact. Patient clarified he has been drinking >1pint daily over the last "couple months." Denied a history of DTs or withdrawal seizures. Patient was informed that he will be started on an Ativan taper in addition to being monitored on [facility] protocol. Patient verbalized understanding of instruction. Discussed possible medication trials to further target mood symptoms. Patient was not agreeable to any mood stabilizer requiring routine blood monitoring. I reviewed the risk/benefit/se profiles of Zyprexa, including risks of irreversible movement disorders, metabolic syndrome with weight gain, diabetes, hypertension, and hyperlipidemia. He was agreeable to restarting Zyprexa for mood stabilization/racing thoughts which he reported he tolerated well in the past. He was also agreeable to starting a SSRI following restart of Zyprexa. Will discuss SSRI options with patient tomorrow. P: 1. Continue monitoring patient on unit for safety, mood and suicidal ideation. 2. Continue monitoring patient on [facility] protocol for alcohol withdrawal. Continue ativan taper as ordered/ utilize prn Ativan per [facility] protocol. 3. Start Zyprexa 5mg QHS for mood stabilization/racing thoughts. Will likely increase as tolerated. 4. Will discuss SSRI options tomorrow to start to target depression. 5. US - Limited ABD ordered per Dr. Singleton to rule out other structural hepatobiliary disease. 6. Dispo planning per primary team.
--- NOTE | 2016-06-09 14:17 | SOCIAL WORKER PROG NOTE PSYCH ---
Social Work Progress Note Progress Note SW met with patient for the first time today. Patient reports feeling "sick" due to withdrawal and presented with depressed mood and affect. Patient shared about his alcohol use and the desire to obtain sobriety. He wishes to go to treatment at [facility] where he completed a phone screening last September. Patient was provided with the phone number to call again today in order to complete a new screening. He signed [facility] and I faxed his clinical information to their admission department for review. Patient is aware that there may be a bed wait at [facility]. He is not interested at staying at either [facility] while waiting for rehab. He states he can return home after discharge from the hospital and will stay sober by "not leaving the house." This job specification writer expressed concerns about this d/c plan but patient stated that he did not want to think about waiting at a place for rehab. He resides with his mother, sister and father. He reports that his sister and mother do not use alcohol/ drugs but his father drinks. He states that his father will not drink at the home though if patient were to return home. Patient agreed to have a family meeting during his hospitalization. This job specification writer left voicemail for patients mother inquiring about family meeting.
[2016-06-10] VITALS (9 sets, daily range): BP systolic 132–146; BP diastolic 70–88
--- NOTE | 2016-06-10 08:27 | CP SOUTH PROGRESS NOTE PSYCH ---
Psych (Inpt) Progress Note Progress Note Include the following elements, when applicable: Involvement in the active treatment of the patient with behavioral observations of the patient and the patient's response to the treatment. Review of the ongoing treatment process in the context of the treatment plan. Indication of how multi-disciplinary staff members are carrying out the treatment plan. Plans for future interventions and recommendations for revision of the treatment plan. Liaison with other physicians/providers. Progress Note: [I discussed this patient's progress to date, current mental status, treatment process in the context of the treatment plan, and discharge planning with staff/ team in the daily morning inpatient team meeting. I also met with the patient myself in individual session.] S: "I'm not feeling good this morning." O: Current Medications Sig/Tayler Start time Last Medication Dose Route Stop Time Status Admin Al Hydroxide/Mg 30 ML Q4-6 PRN PRN 06/08 1000 AC Hydroxide PO Escitalopram Oxalate 10 MG 0806/10 0800 AC PO Folic Acid 1 MG 0806/09 0900 AC 06/10 PO 06/12 0801 0808 Gabapentin 300 MG Q6P PRN 06/10 0815 AC PO Hydroxyzine HCl 50 MG Q6-PRN PRN 06/08 1615 DC 06/08 PO 1858 Ibuprofen 400 MG .STK-MED ONE 06/09 1300 DC PO 06/09 1301 Ibuprofen 400 MG Q6PRN PRN 06/08 1000 AC 06/09 PO 1309 Lorazepam 0.5 MG 0800,06/12 0800 AC PO 06/12 2000 Lorazepam 0.5 MG Q6 06/11 0600 AC PO 06/11 2359 Lorazepam 1 MG Q8 06/10 0600 AC 06/10 PO 06/10 2201 0605 Lorazepam 1 MG Q6 06/09 0915 DC 06/09 PO 06/09 2359 2318 Lorazepam 1 MG Q6-PRN PRN 06/08 1615 DC PO Lorazepam 1 MG Q2 HRS NEEDED PRN 06/08 1000 AC 06/08 PO 2152 Lorazepam 2 MG Q2 HRS NEEDED PRN 06/08 1000 AC 06/08 PO 1959 Multivitamins 1 TAB 0800 06/09 0900 AC 06/10 PO 0808 Nicotine 2 MG Q2 HRS NEEDED PRN 06/08 1615 AC PO Nicotine 21 MG DAILY 06/08 1301 AC 06/09 TOP 0849 Olanzapine 5 MG ONCE ONE 06/10 08 DC 06/10 PO 06/10 0801 0808 Olanzapine 5 MG Q6P PRN 06/11 799 AC PO Olanzapine 5 MG 06/09 AC 06/09 PO 2136 Ondansetron HCl 4 MG ONCE ONE 06/09 1030 DC 06/09 PO 06/09 1031 1033 Thiamine HCl 100 MG 06/09 09 AC 06/10 PO 06/12 0801 0808 Trazodone HCl 50 MG AT BEDTIME NEED.. 06/08 220 AC PO Vital Signs Date Time Temp Pulse Resp B/P Pulse O2 O2 Flow FiO2 Ox Delivery Rate 06/10 0748 97.1 66 133/70 06/10 0742 97.1 66 133/70 06/09 2000 98.4 97 106/88 06/09 1932 98.4 97 156/88 06/09 1606 98 136/75 06/09 1600 98 136/75 06/09 1508 Room Air Room Air 06/09 1411 93 139/80 06/09 1232 98 109/59 06/09 1229 98 109/59 06/09 1022 97.1 95 141/78 Lab Hep B Core IgM Ab Conf NONREACTIVE 06/09/1636 Hep Bs Antigen NONREACTIVE 06/09/16535 Hepatitis A IgM Ab NONREACTIVE 06/09/1636 Hepatitis C Antibody NONREACTIVE 06/09/16 0536 A: Chart, progress notes, VS, labs, CIWA scores (last 24 hours: 7-6-8-2-0-0-1), and medication list were reviewed. BP and HR wnl. CIWA scores improving. ABD US remains ordered and procedure pending. Met with patient this morning in office. He presented lethargic with down mood, sitting slouched in chair. Mood remained "depressed," labile, and impulsive; exhibiting a brief spontaneous episode of agitation in where he began yelling in office and smacking his hands against his head expressing disgust towards other patients "not leaving me alone...I want to eat breakfast without people talking to me...I want my own damn room." Patient deescalated with redirection, was able to follow short, firm prompts. Patient with poor insight into his anger and irritability, was unable to state triggers to feelings ? brought on by other patients. He denied homicidal ideation. When asked if he felt safe on unit, he passively reported "yes." He went on to state, "I'm here, there's no way for me to hurt myself." I asked patient how he would respond to having a 1:1 sitter. He reported "it would piss me off having someone in my space." At this time, I do not feel a 1:1 sitter would be therapeutic for patient. Patient verbalized he would approach staff if feeling agitated or endorsing homicidal/suicidal ideation. He denied active suicidal ideation, plans or intent while on unit. He reported passive suicidal ideation, however gave a safety promise while on unit. He denied auditory and visual hallucinations. He reported + racing thoughts, however would not elaborate on the content. He reported sleeping well last evening; but of note, reported having "good dreams" of him "suiciding." Patient did not further elaborate on the content of these dreams. He reported some mood lability prior to falling asleep last evening, reported "crying a lot" however showed limited insight into trigger of this. Thought process was linear. Thought content was depressed, sad, hopeless, helpless. Cognition was grossly intact. Patient continued to decline trial of [place] for mood stabilization and antisuicidal properties, and other mood stabilizers requiring routine blood monitoring. Additionally offered patient a trial of Haldol versus Zyprexa given less hepatic risk associated with Haldol to target mood stability, given mildly elevated LFTs. Patient however declined this medication, as he reported past positive efficacy on Zyprexa. He reported tolerating Zyprexa well and denied untoward medication effects. Reviewed the risks of increasing Zyprexa beyond 5mg daily for those with hepatic impairment (per Dr. Hernandez Caicedo, Essential Psychopharmacology, 5th edition ). Patient verbalized understanding of the risks, and was agreeable to increase. Will increase to 10mg QHS for mood stabilization, and will offer prn Zyprexa for agitation/impulsivity/racing thoughts. Patient was agreeable to starting trial of Lexapro for depression. The risk/ benefit/se profiles were reviewed with the patient who verbalized understanding and was agreeable to trial. Reviewed with the patient ABD US which remains scheduled to r/o other structural hepatobiliary disease. Patient reported he is refusing test as he does not want to wait further for procedure and miss further meals. Reviewed with the patient the importance of procedure and the risks of not completing procedure. Patient verbalized understanding of education; he again refused procedure. Patient was agreeable to having further blood work to monitor LFTs, and also gave permission for hepatitis testing. P: 1. Continue monitoring patient on unit for safety, mood, agitation, suicidal ideation. 2. Increase Zyprexa from 5mg to 10mg at bedtime for mood stabilization. Will start prn Zyprexa Q6H for agitation/impulsivity/racing thoughts. 3. Start Lexapro 10mg daily for depression. 4. Consider adding Lamictal daily for depression. 5. Family meeting with patient and mother today. 6. Dispo planning per primary team. 7. Rpt ALT/AST tomorrow morning. Ammonia level ordered for tomorrow morning.
--- NOTE | 2016-06-10 14:34 | SOCIAL WORKER TX PLAN PSYCH ---
Treatment Plan - Please Document: - Evidence that there is ongoing collaboration between - the patient and the interdisciplinary team, - including the patient's active participation and - responsibility for engaging in the treatment regimen, - and that the treatment plan is individualized and - relevant to the patient's conditions. - Treatment plan should reflect documentation indicating - that all active therapeutic efforts are included. Strengths/Capabilities: Pt has a supportive family. Pt is able to articulate his wants and needs. Pt has sought help and been engaged in treatment before in the past. Physical Limitations (Interventions): None identified Patient Identified Trmt Goals: "I want a better life for myself." Discharge Plan: [facility] Problem/Goals #1 Problem #1: suicidal ideation Goal (Short Term): Today I will attend 2 groups Today I will identify 2 stressors Today I will identify 2 positive supports Today I will work on recognizing 3 emotions I am feeling Goal (Store Worker): Be free of suicidal thoughts/attempts Develop 3 coping skills to deal with depression Identify 3 positive support systems to call in crisis Develop a crisis plan with 3 henderson people Identify 2 positive traits per week about myself Identify 2 things I have to look forward to Identify 2 positive people in my life and 1 thing I appreciate about them Interventions: Learn ways to manage depressive symptoms accordingly and identify positive supports to manage life stressors and mood fluctuations. Modalities: Encourage groups, education on depression, provide CBT treatment, family meeting. Problem/Goals #2 Problem #2: alcohol dependence/abuse Goal (Short Term): 1) Refrain from alcohol use 2) Identify 3 triggers for use 3) Identify 3 sober supports 4) Identify 3 coping skills Goal (Usp): I will have family meeting on unit during my hospitalization I will attend all AA groups on unit I will Identify 3 coping skills for cravings to use I will set up aftercare for dual diagnosis program to address both mental health and substance abuse concerns Interventions: Learn ways to manage cravings to use substances accordingly and identify coping skills to prevent relapse from occurring due to anxious/depressed feelings. Modalities: Encourage groups, education on addiction, provide CBT treatment, family meeting. DSM5/PS Stressors/Medical Prob Diagnosis' (DSM 5, Stressors, Medical): F31.4 Bipolar Disorder most recent depressed; Severe F10.24 Alcohol Use Disorder Severe F60.9 Personality unspec. Current GAF: 35 Treatment Team - Responsibilities of members of the treatment team include: - Medication Management- MD or APPLICATIONS ENGINEER MANUFACTURING - Medication Administration and Monitoring- Nurse - Group Therapy- Occupational Therapist - 1:1 Therapy,Disch Planning,family involvement-Apprenticeship Representative
--- NOTE | 2016-06-10 14:39 | SOCIAL WORKER PROG NOTE PSYCH ---
Social Work Progress Note Progress Note Patient presents irritable today with depressed mood and affect. Patient in bed all day, refusing groups and participating in any meetings. Patient allowed this creative writer and Janis Mckenzie APRN to have family meeting with his mother and his aunt. Together they expressed great concern for patients alcohol use and dangerous behaviors under the influecne of alcohol, such as driving under the influence and possible fire risk in the house due to leaving kitchen appliances unattended when under the influence. They are aware that as of now patient is not participating in his current treatment, aftercare planning and is resistent to any aftercare that does not permit cellphone use. Patient was informed by his mother last evening on the phone that he is not welcome back to the house until after he completes substance abuse treatment. Ever since this conversation patient has been extremely irritable and defiant with his treatment. Patient continues to present SI at present and refused to meet with his aunt and mother before they left the hospital today.
[2016-06-11] VITALS (8 sets, daily range): BP systolic 138–152; BP diastolic 72–90
--- NOTE | 2016-06-11 12:53 | CP SOUTH PROGRESS NOTE PSYCH ---
Psych (Inpt) Progress Note Progress Note Include the following elements, when applicable: Involvement in the active treatment of the patient with behavioral observations of the patient and the patient's response to the treatment. Review of the ongoing treatment process in the context of the treatment plan. Indication of how multi-disciplinary staff members are carrying out the treatment plan. Plans for future interventions and recommendations for revision of the treatment plan. Liaison with other physicians/providers. Progress Note: [I discussed this patient's progress to date, current mental status, treatment process in the context of the treatment plan, and discharge planning with staff/ team in the daily morning inpatient team meeting. I also met with the patient myself in individual session.] S: "I found a place to stay, with my lul [facility]ero." O: Current Medications Sig/Tayler Start time Last Medication Dose Route Stop Time Status Admin Al Hydroxide/Mg 30 ML Q4-6 PRN PRN 06/08 1000 AC Hydroxide PO Escitalopram Oxalate 10 MG 2100 06/11 2100 AC PO Escitalopram Oxalate 10 MG 0806/10 0800 DC 06/10 PO 1015 Folic Acid 1 MG 06/09 0900 AC 06/11 PO 06/12 0801 0836 Gabapentin 300 MG Q6P PRN 06/10 0815 AC PO Ibuprofen 400 MG Q6PRN PRN 06/08 1000 AC 06/09 PO 1309 Lorazepam 0.5 MG 08,06/12 0800 AC PO 06/12 2000 Lorazepam 0.5 MG Q6 06/11 0600 AC 06/11 PO 06/11 2359 1241 Lorazepam 1 MG Q8 06/10 0600 DC 06/10 PO 06/10 2201 2203 Lorazepam 1 MG Q2 HRS NEEDED PRN 06/08 1000 AC 06/08 PO 2152 Lorazepam 2 MG Q2 HRS NEEDED PRN 06/08 1000 AC 06/08 PO 1959 Multivitamins 1 TAB 06/09 0900 AC 06/11 PO 0836 Nicotine 2 MG Q2 HRS NEEDED PRN 06/08 1615 AC 06/11 PO 0901 Nicotine 21 MG DAILY 06/08 1301 AC 06/11 TOP 0836 Olanzapine 15 MG 2200 06/11 2200 AC PO Olanzapine 10 MG 2200 06/10 2200 DC 06/10 PO 2203 Olanzapine 5 MG Q6P PRN 06/10 0800 AC 06/10 PO 0836 Thiamine HCl 100 MG 0800 06/09 0900 AC 06/11 PO 06/12 0801 0836 Trazodone HCl 50 MG .STK-MED ONE 06/10 2245 DC PO 06/10 2246 Trazodone HCl 50 MG AT BEDTIME NEED.. 06/08 2200 DC 06/10 PO 2251 Laboratory Tests 06/11 0629 Chemistry AST (17 - 59 U/L) 72 H ALT (21 - 72 U/L) 169 H Ammonia (9 - 30 umol/L) 11 Vital Signs Date Time Temp Pulse Resp B/P Pulse O2 O2 Flow FiO2 Ox Delivery Rate 06/11 1243 92 152/82 06/11 1220 92 152/82 06/11 0756 96.8 82 138/74 06/11 0742 96.8 82 138/74 06/10 2012 97 146/88 06/10 1946 97.3 97 146/88 06/10 1536 87 142/76 06/10 1535 87 142/76 06/10 1432 77 145/77 A: Chart, progress notes, labs, VS, CIWA scores, and medication list were reviewed. AST and ALT remain elevated. Ammonia level wnl. Last 24 hours of CIWA: 2-2-1-2-2 -0. Met with patient 1:1 today. He presented calmer this morning in comparison to yesterday. He showed good behavioral and physical control. Mood was stable overall. He appeared more focused on himself and aftercare treatment today. He expressed not wanting to pursue rehab given that he would be unable to have his cell phone at residential rehab. He could not verbalize the significance of having his cell phone on him. He reported being agreeable to participating in a dual [facility]. He reported that he was invited to stay at his friend's home ([facility]) who is sober and a positive influence. He gave permission for primary team to speak to this friend to confirm plan. Tiffanie Bae LCSW and this report writer, together with the patient called Homero who the patient requested to temporarily stay with post-discharge. Homero reported that he would be glad to have the patient stay with him temporarily under the condition that he does not use alcohol or other substances, or bring any substances into his home. Homero was in favor of discharge plan for patient to follow-up at Dual [facility] and attend AA meetings. Homero also reported that he would assure that the patient stayed adherent to prescribed medications. The patient was also in favor of Homero partaking in his treatment post-discharge. Met individually again with patient later today. He reported feeling more hopeful and relieved that a discharge plan fell into place and one that he is agreeable to. He reported depression of 3/10 (10 being the worst) and anxiety of 5/10 (10 being the worst). He denied active and passive suicidal ideation, plans and intent. He denied feeling hopeless, helpless, worthless and guilty. He reported his sleep and appetite were good. He denied homicidal ideation. He was more visible in the milieu today; he was observed interacting with peers appropriately. He denied auditory and visual hallucinations. There was no evidence of paranoia or nilton delusions, or overt symptoms of claudia/hypomania. Speech was mildly hyperverbal at times. Thought process was goal-directed, linear. Thought content was treatment focused and optimistic. Cognition was grossly intact. Patient reported tolerating all medications well and denied untoward medication effects. He was agreeable to increase Zyprexa from 10mg to 15mg QHS for further mood stabilization. He further denied subjective reports of alcohol withdrawal and reported tolerating ativan taper well. P: 1. Continue monitoring patient on unit for safety, mood and suicidal ideation. 2. Increase Zyprexa from 10mg QHS to 15mg QHS for further mood stabilization. 3. Continue prn Zyprexa for agitation. 4. Continue CIWA protocol and Ativan taper as ordered for alcohol withdrawal. 5. [facility] IOP intake scheduled on 06/13/16 at 9:30AM.
--- NOTE | 2016-06-11 13:06 | SOCIAL WORKER PROG NOTE PSYCH ---
Social Work Progress Note Progress Note Patient presents today with brighter mood than yesterday, refraining from isolating in his room and is attending groups on the unit. Patient reports that he spoke with a sober friend who has offerred for patient to temporarily reside with him. Patient states that his friends family member had a hx of addiction and his friend has zero tolerance for substance use in the house or coming into the house under the influence. Patient states that he would like to attend IOP while residing with this friend. He is scheduled for an IOP intake on Thursday @ 9:30am. Patients mother is aware of patients aftercare plan and in support of it and still not allowing patient to return to her home. Patient denies any SI at present and is aware that we are tentatively planning for discharge for him this Thursday.
[2016-06-12] VITALS (8 sets, daily range): BP systolic 117–162; BP diastolic 68–80
--- NOTE | 2016-06-12 13:07 | CP SOUTH PROGRESS NOTE PSYCH ---
Psych (Inpt) Progress Note Progress Note Include the following elements, when applicable: Involvement in the active treatment of the patient with behavioral observations of the patient and the patient's response to the treatment. Review of the ongoing treatment process in the context of the treatment plan. Indication of how multi-disciplinary staff members are carrying out the treatment plan. Plans for future interventions and recommendations for revision of the treatment plan. Liaison with other physicians/providers. Progress Note: [I discussed this patient's progress to date, current mental status, treatment process in the context of the treatment plan, and discharge planning with staff/ team in the daily morning inpatient team meeting. I also met with the patient myself in individual session.] S: "I'm excited for discharge tomorrow!" O: Current Medications Sig/Tayler Start time Last Medication Dose Route Stop Time Status Admin Al Hydroxide/Mg 30 ML Q4-6 PRN PRN 06/08 1000 AC Hydroxide PO Escitalopram Oxalate 10 MG 2100 06/11 2100 AC 06/11 PO 212 Folic Acid 1 MG 06/09 DC 06/12 PO 06/12 0801 0806 Gabapentin 300 MG Q6P PRN 06/10 0815 AC PO Ibuprofen 400 MG Q6PRN PRN 06/08 1000 AC 06/09 PO 1309 Lorazepam 0.5 MG 799,06/12 AC 06/12 PO 06/12 2001 08 Lorazepam 0.5 MG Q6 06/11 0600 DC 06/11 PO 06/11 2359 2325 Lorazepam 1 MG Q2 HRS NEEDED PRN 06/08 1000 AC 06/08 PO 2152 Lorazepam 2 MG Q2 HRS NEEDED PRN 06/08 1000 AC 06/08 PO 1959 Multivitamins 1 TAB 06/09 0900 AC 06/12 PO 0806 Nicotine 2 MG Q2 HRS NEEDED PRN 06/08 1615 AC 06/12 PO 0849 Nicotine 21 MG DAILY 06/08 1301 AC 06/12 TOP 0806 Olanzapine 15 MG 06/11 AC 06/11 PO 2124 Olanzapine 5 MG Q6P PRN 06/10 0800 AC 06/10 PO 0836 Thiamine HCl 100 MG 06/09 09 DC 06/12 PO 06/12 0801 0806 Vital Signs Date Time Temp Pulse Resp B/P Pulse O2 O2 Flow FiO2 Ox Delivery Rate 06/12 1236 90 145/76 06/12 1212 90 145/76 06/12 0814 96.2 77 117/68 06/12 0735 96.2 77 117/68 06/11 1949 98.0 84 147/72 06/11 1934 98.0 84 147/72 06/11 1607 96 143/90 06/11 1600 96 143/90 A: Chart, progress notes, labs, VS, CIWA scores (not scoring over last 24 hours) and medication list were reviewed. Vital signs within normal limits. No new lab results today. Met with patient this afternoon 1:1. He reported feeling more tired this morning (likely from increase in Zyprexa). Despite feeling tired, he reports tolerating medications well. He also reported improved sleep. He showed improved insight into the impact of his drug/alcohol use on his mental and physical health. He expressed motivation to remain abstinent from all substances including cannabis. He shared that his friend Homero who he will be temporarily residing with post- discharge informed him that he will be held to a 10PM curfew every night for the time he lives in his home. Patient was agreeable to curfew and appears to see that his friend's efforts are to support his sobriety and mental health. Patient denied passive and active suicidal ideation, plans and intent. Denied homicidal ideation, AVH, PI/delusions. Speech was normal in rate, tone, and volume. Eye contact was appropriate. Ox4. Denied acute symptoms of anxiety/ depression. Thought process goal directed and linear. Thought content appropriate. Cognition grossly intact. No evidence of hypomanic/manic symptoms. Sleep and appetite stable. P: 1. Continue monitoring patient on unit for safety and mood. 2. Ativan taper will finish tonight. 3. Conitnue current medications. 4. Discharge tomorrow to [facility] intake at 9:30AM. 5. Outpatient appointment scheduled with senior front end developer Dr. Artemio Alfaro on 07/10/16 at 12:30PM for transaminitis. 6. Outpatient appointment scheduled with Dr. Willis on , 06/19/16 at 11AM to establish PCP and latent TB management.
--- NOTE | 2016-06-12 14:06 | SOCIAL WORKER PROG NOTE PSYCH ---
Social Work Progress Note Progress Note Discussed Fernando in team meeting with Janis Mckenzie APRN and staff. Met with Fernando , he denied intent or plan to harm himself. No AH/VH. He stated he plans to stay sober. He will attend [facility] program, has an intake on 06/13/16 at 9:30am. He was interested in information on DSS galindo assistance and fodo stamps. I gave him the website for DSS and online application for both. He stated he will apply. ALso gave him a contact for an attorny with [employer], Vida Bloom ESQ in [place] - she can talk with him regarding the disability process and guide him through. Fernando's mother phoned, Sadia and she left a voicmail earlier in the day. She called again, and I spoke with her - she is worried about Fernando's discharge tomorrow, tried to reassure her that he has a good plan to live with his friend and attend [facility]. She stated she hopes he stays sober and goes to the [facility]. Encouraged his Mother to consider Al-Anon and JASMIN as supports for herself.
[2016-06-13] MEDS ORDERED: ONE DAILY MULT1 EAC2 PO (07:07)
[2016-06-13 07:50] VITALS: BP 138/69
--- NOTE | 2016-06-13 07:57 | CP SOUTH PROGRESS NOTE PSYCH ---
Psych (Inpt) Progress Note Progress Note Include the following elements, when applicable: Involvement in the active treatment of the patient with behavioral observations of the patient and the patient's response to the treatment. Review of the ongoing treatment process in the context of the treatment plan. Indication of how multi-disciplinary staff members are carrying out the treatment plan. Plans for future interventions and recommendations for revision of the treatment plan. Liaison with other physicians/providers. Progress Note: [I discussed this patient's progress to date, current mental status, treatment process in the context of the treatment plan, and discharge planning with staff/ team in the daily morning inpatient team meeting. I also met with the patient myself in individual session.] S: "I feel a lot better, seriously. Thank you." O: Current Medications Sig/Tayler Start time Last Medication Dose Route Stop Time Status Admin Al Hydroxide/Mg 30 ML Q4-6 PRN PRN 06/08 1000 AC Hydroxide PO Escitalopram Oxalate 10 MG 2100 06/11 2100 AC 06/12 PO 2116 Gabapentin 300 MG Q6P PRN 06/10 0815 DC PO Ibuprofen 400 MG Q6PRN PRN 06/08 1000 AC 06/09 PO 1309 Lorazepam 0.5 MG 0800,06/12 0800 DC 06/12 PO 06/12 Lorazepam 1 MG Q2 HRS NEEDED PRN 06/08 1000 DC 06/08 PO 2152 Lorazepam 2 MG Q2 HRS NEEDED PRN 06/08 1000 DC 06/08 PO 1959 Multivitamins 1 TAB 0800 06/09 0900 AC 06/13 PO 0748 Nicotine 2 MG Q2 HRS NEEDED PRN 06/08 1615 AC 06/12 PO 1742 Nicotine 21 MG DAILY 06/08 1301 AC 06/13 TOP 0748 Olanzapine 15 MG 2200 06/11 2200 AC 06/12 PO 2116 Olanzapine 5 MG Q6P PRN 06/10 0800 AC 06/10 PO 0836 Vital Signs Date Time Temp Pulse Resp B/P Pulse O2 O2 Flow FiO2 Ox Delivery Rate 06/13 0750 96.2 74 138/69 06/12 2014 97.0 82 142/80 06/13 2007 97.0 82 142/80 06/12 1647 81 162/73 06/12 1643 81 162/73 06/12 1236 90 145/76 06/12 1212 90 145/76 06/12 0814 96.2 77 117/68 A: Chart, progress notes, labs, VS, CIWA (not scoring last 48 hours) and medication list were reviewed. Ativan taper completed last night. No evidence of objective signs /subjective reports of etoh withdrawal. Vital signs within normal limits. No new lab results today. Met with patient individually this morning on the date of discharge. He presented alert and oriented to person, place, time and situation. Speech was normal in rate, tone and volume. Eye contact was appropriate. Affect was full- range, non-labile. Mood was euthymic. He reported attending AA meeting last evening on unit and it being a positive experience. He obtained phone contact from winch driver and expressed motivation to attend AA meetings once discharged from [facility]. He denied urges or cravings to use alcohol or other illicits. He showed imrpoved insight into the impact of drugs/alcohol on his physical and mental health. He also showed improved insight into the legal consequences of continued substance use. He reported his mood as "good." He reported anxiety of 4/10 (10 being the worst) and depression of 0/10 (10 being the worst). He denied feeling hopeless, helpless, worthless, and guilty. He denied passive and active suicidal ideation, plans and intent. He denied homicidal ideation. He stated and also believed he will not harm himself or others. He identified protective factors of "my friend Homero," "my mom and aunt, " and "my sobriety." He expressed motivation to remain sober; hopeful and future oriented to find a job in the near future. He appeared optimistic about participation in [facility] and about developing new sober relationships to support his sobriety. There was no evidence of manic/hypomanic/psychotic symptoms. He denied auditory and visual hallucinations. Thought process was organized and goal-directed. Thought content was appropriate. Cognition was grossly intact. He reported his sleep and appetite were good. He reported tolerating all medications well and denied untoward medication effects. He reported feeling safe and ready for discharge. P: 1. Discharge today to friend Homero's home. 2. F/u with [facility] intake today, 06/13/16 at 9:30AM. 3. F/u with defensive line coach Dr. Artemio Alfaro at [facility] on 07/10/16 at 12:30PM for transaminitis. 4. F/u with with PCP Dr. Willis at [facility] on , 06/19/16 at 11AM for initial PCP appointment and latent TB management. 5. All discharge prescriptions were called into [facility] this morning. 6. Patient was strongly advised to abstain from all substances. He was advised to attend daily AA/NA meetings and to obtain a sponsor for support in sobriety. 7. In the event of an emergency, call 911/go to nearest emergency department. Patient verbalized understanding of all instruction.
--- NOTE | 2016-06-13 08:01 | DISCHARGE SUMMARY REPORT-PSYCH ---
Visit Information Visit Dates/Diagnosis' Admission Date: 06/08/16 Discharge Date: 06/13/16 Reason for Admission: Suicidal ideation without plan/intent while intoxicated on alcohol, cannabis, and cocaine. Psy Discharge Primary Diag: Bipolar disorder, unspecified, most recent episode depressed Psy Discharge Secondary Diag: Alcohol use disorder,severe; stimulant use disorder,severe; cannabis use disorder, severe; nicotine use disorder; transaminitis; latent TB. Hospital Course Significant Lab Findings: Lab ALT 171 U/L H 06/08/16 0301 ALT 142 U/L H 06/09/16 0536 ALT 169 U/L H 06/11/16 0629 AST 87 U/L H 06/08/16 0301 AST 60 U/L H 06/09/16 0536 AST 72 U/L H 06/11/16 0629 Serum Alcohol 216.0 MG/DL 06/08/16 0301 Urine Cannabis Screen > 80.00 NG/ML H 06/08/16 0253 Urine Cocaine Screen > 1000 NG/ML H 06/08/16 0253 Course Complications: None. Consultations: The patient was seen for admission history and physical by pony edger Dr. Odette Singleton. On evaluation, patient was noted to have a positive PPD in January 2016 and on chronic INH therapy. Also, patient's LFT were elevated. Dr. Singleton recommended a right upper quadrant ultrasound to rule out other structural hepatobiliary disease, repeat LFTs, amylase and lipase levels. Patient refused abdomen ultrasound for unlcear reasons. See lab results in above "significant lab" section. Dr. Singleton further recommended holding INH until LFTs trended down. Patient did not require isolation precautions beyond standard given latent TB per Dr. Singleton. Dr. Singleton further recommended the patient be referred to [facility] outpatient service upon discharge given that he presently obtains INH from a walk-in clinic and to determine whether or not to resume INH therapy versus starting a different treatment. Allergies: Coded Allergies: shellfish derived (Intermediate, ANAPHYLAXIS 08/20/15) fluticasone (From FLONASE) (OPPOSITE REACTION - EYES WATER, NOSE IS STUFFY, STUFFY THROA 08/19/15) Hospital Course/TX Response: The patient was monitored on the unit for safety, mood, suicidal ideation and alcohol withdrawal. He participated in multimodal treatments on the unit. He was monitored on CIWA protocol and started on an Ativan taper for alcohol withdrawal. He successfully completed Ativan taper without complications. He refused trials of [place] and Tegretol for mood stabilization. A trial of Depakote was not considered given elevated LFTs. He was agreeable to retrialing Zyprexa for mood stabilization which he had been on in the past. Zyprexa 5mg at bedtime was started for mood stabilization and was increased to 15mg at bedtime. Lexapro 10mg was also started at bedtime for depression/anxiety. The patient tolerated all medications well and denied untoward medication effects. During the hospital course, the patient's mood and affect improved. Suicidal ideation remitted. He successfully detoxed off of alcohol without complication. A family meeting was held with the patient's mother who he lived with and his aunt, Tiffanie BaeNISA and this magazine writer. The patient refused to engage in this family meeting. The patient's mother and aunt expressed great concern regarding the patient's polysubstance abuse and the consequences resulting from his use. They both were in favor of him transitioning to a residential rehab from inpatient level of care. The patient's mother reported during meeting that she would not allow the patient to return to her home given the severity of his use and how it disrupts her household. The patient however was not agreeable to residential treatment. During individual sessions with the patient, he grew in favor of plan to engage in [facility] level of care. Housing however initially presented as a barrier to this plan given that he was not welcome to return to his mother's home. The patient reported that he had a sober friend who lived in the [facility] and who was willing to have the patient temporarily reside with him post-discharge. The patient gave permission for primary treatment team to speak to this friend to confirm this arrangement. The patient's friend, Homero, confirmed that he was willing to have the patient temporarily reside with him. He stated that there would be a zero-tolerance rule in place of no alcohol or other substances in his home. He also stated that if the patient presented to his home intoxicated or deviated from his discharge treatment plan he would not be allowed to remain in his home. The patient' friend appeared to be a positive support for the patient; he was also in favor of the patient's discharge plan to attend [facility], attend AA meetings and obtain a sponsor while he resided at his home. The patient was also in agreement of discharge plan, and his friend's rules. On the date of discharge, 06/13/16, the patient presented alert and oriented to person, place, time and situation. Speech was normal in rate, tone and volume. Eye contact was appropriate. Affect was full-range, non-labile. Mood was euthymic. He reported attending AA meeting last evening on unit and it being a positive experience. He obtained phone contact from the health and safety coordinator and expressed motivation to attend AA meetings once discharged from [facility]. He denied urges or cravings to use alcohol or other illicits. He showed imrpoved insight into the impact of drugs/alcohol on his physical and mental health. He also showed improved insight into the legal consequences of continued substance use. He reported his mood as "good." He reported anxiety of 4/10 (10 being the worst) and depression of 0/10 (10 being the worst). He denied feeling hopeless, helpless, worthless, and guilty. He denied passive and active suicidal ideation, plans and intent. He denied homicidal ideation. He stated and also believed he will not harm himself or others. He identified protective factors of "my friend Homero," "my mom and aunt," and "my sobriety." He expressed motivation to remain sober; hopeful and future oriented to find a job in the near future. He appeared optimistic about participation in Dual [facility] and about developing new sober relationships to support his sobriety. There was no evidence of manic/hypomanic/ psychotic symptoms. He denied auditory and visual hallucinations. Thought process was organized and goal-directed. Thought content was appropriate. Cognition was grossly intact. He reported his sleep and appetite were good. He reported tolerating all medications well and denied untoward medication effects. He reported feeling safe and ready for discharge. Discharge HBIPS - Tobacco Use Treatment Offered Post DC Medications Offered: Script Given-See Med List Post DC Tobacco Treatment Plan: Refused Tobcco Tx Pgm - EtOH/Drug Use D/O Treatment Offered Post DC Medications Offered: Ref Med EtOH/Drug Use D/O Post DC EtOH/SubAbuse TX Plan: [facility] SubAbuse/[facility] Program Appt Date: 06/13/16 Program Appt Time: 0930 Metabolic Screening - Screen if on a Neuroleptic Medication - Metabolic screening should include: - Blood Pressure, BMI, Glucose or Hgb A1c, & a - Lipid profile from within the past 365 days. Metabolic Screening () Not Applicable, patient not on a neuroleptic. OR ([X]) Patient on a neuroleptic(s) . Enter below results for Glucose or Hemoglobin A1C, and lipid panel if obtained during the last 365 days. BMI: 29.800 Blood Pressure: 138/69 Laboratory Results (If applicable): Lab Cholesterol 188 MG/DL 09/29/15 0744 Cholesterol/HDL Ratio 5 % H 09/29/15 07 Glucose 93 mg/dL 06/08/16 0301 HDL Cholesterol 38 mg/dL L 09/29/15 07 LDL Cholesterol, Calc 125 mg/dL 09/29/15 07 Triglycerides 129 mg/dL 09/29/15 07 Discharge Instructions General Discharge Information Discharge Medications: Discharge Medications- (Dose, route, freq, indication): START taking these NEW Home Medications: Nicotine (Nicotine Dose: On the skin, DAILY for Qty: 14 Called in to Patch) 21 MG/24 HOUR 21 Milligram tobacco cessation Refills: 0 Pharm 1 PATCH.TD24 Apply 1 patch topically to upper arm every morning and remove before bedtime. Last Taken:08:00 Time:06/12/16 Escitalopram Oxalate Dose: ORAL, AT BEDTIME for Qty: 14 Called in to (Lexapro) 10 MG 10 Milligram depression/anxiety Refills: 0 Pharm 1 TABLET Take 1 tablet by mouth at bedtime. Last Taken:06/12/16 Time:21:00 Olanzapine Dose: ORAL, AT BEDTIME for Qty: 14 Called in to (Olanzapine) 15 MG 15 Milligram mood stability/clear Refills: 0 Pharm 1 TABLET thoughts Take 1 tablet by mouth at bedtime. Last Taken:06/12/16 Time:21:00 Multivitamin (One Dose: ORAL, DAILY for VITAMIN None Daily Multivitamin) 1 Tablet SUPPORT 1 EACH TABLET Take 1 tablet by mouth daily. Purchase over the counter and take as prescribed above. 1: [id number], [address] [place], [place] [id number] Your Preferred Pharmacy [id number] [address] [place] [address] Multiple Neuroleptics: () Not Applicable OR Document below three failed attempts at monotherapy, or a plan to taper to monotherapy, or augmentation of Clozapine. () Patient's Diet: Regular Patient's Activity: No restrictions DC Disposition: Patient to discharge to and reside with his friend Homero in [place], [place]. Recommendations: Patient was advised to please take his medications as prescribed. He was advised to abstain from all substances, attend daily AA meetings and obtain a sponsor. He was advised to follow-up with all scheduled outpatient appointments. He was advised that in the event of an emergency, to call 911/go to nearest emergency department. Patient verbalized understanding of all instructions. Referred To: [facility] - GI Dr. Alfaro [address], [address] [place] [address] [phone] *Appointment scheduled with sales and marketing manager Dr. Anna Alfaro on 07/10/16 at 12:30PM. [facility] - Primary Care Dr. Willis [address], [address] [place] [address] [phone] *Appointment scheduled with PCP Dr. Willis on , 06/19/16 at 11AM. [facility] Intake 06/13/16 at 9:30am [address] [place] [address] [phone])[phone] Copies To: JACI ELIAS; KWAN MUNOZ,NARINDER ALFARO MD,ANNA
[2016-06-13] MEDS ORDERED: OLANZAPINE15 M1 PO (08:02)
[2016-06-13] MEDS ORDERED: LEXAPRO10 M1 PO (08:03)
[2016-06-13] MEDS ORDERED: NICOTINE PATCH1 EAC3 TOP (08:05)
== END 2016-06-13 09:20 | DRG 753 ==
LOC: ERH 02:41 → ENPENDDIS 09:54 → CP SOUTH 09:54 → ERHI 09:54 → CP SOUTH 12:23
PROVIDERS: Emergency Medicine; ADMIT Psychiatry & Neurology Addiction Medicine
DX: F31.9 Bipolar disorder, unspecified (principal); F10.20 Alcohol dependence, uncomplicated; F15.20 Other stimulant dependence, uncomplicated; F12.20 Cannabis dependence, uncomplicated; Z72.0 Tobacco use; R74.0 Nonspecific elevation of levels of transaminase and lactic acid dehydrogenase [LDH]; R76.11 Nonspecific reaction to tuberculin skin test without active tuberculosis
CPT/HCPCS: 36415; 80307; 93005; 93010; G0463; G0480; J3101; J3490

== ENCOUNTER 2016-06-29 03:49 | Inpatient (IN) | payer OTHER ==
[~2016-06-29] VITALS: Ht 180.3 cm; Wt 105.7 kg
[~2016-06-29 03:49] MED LIST: LEXAPRO10 M1 PO; NICOTINE PATCH1 EAC3 TOP; OLANZAPINE15 M1 PO; ONE DAILY MULT1 EAC2 PO
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
--- NOTE | 2016-06-29 04:13 | NUR ---
PT MOVED TO ROOM 15. WANDED BY SECURITY AND CHANGED INTO BLUE PAPER SCRUBS. 1 VALUABLE BAG IN ER SAFE AND 1 BELONGING BAG IN CLOSET PT CALM AND COOPERATIVE SITTER PRESENT
--- NOTE | 2016-06-29 04:52 | NUR ---
BLOOD DRAWN AND SENT TO LAB SST LAV BLUE
[2016-06-29 04:53] LABS: ABSOLUTE BASOPHIL COUNT 0.1 /CUMM (0.0-0.2); ABSOLUTE EOSINOPHIL COUNT 0.3 /CUMM (0.0-0.7); ABSOLUTE GRANULOCYTE CT 5.9 /CUMM (1.4-6.5); ABSOLUTE LYMPH COUNT 3.9 /CUMM (1.2-3.4); ABSOLUTE MONOCYTE COUNT 0.8 /CUMM (0.10-0.60); BASOPHIL % 0.7 % (0.0-2.0); EOSINOPHIL % 2.6 % (0-5); GRANULOCYTE % 53.7 % (42.2-75.2); HEMATOCRIT 46.6 % (42-52); MEAN CORPUSCULAR HGB 30.5 PG (27.0-31.0); MEAN CORPUSCULAR HGB CONC 33.8 G/DL (33.0-37.0); MEAN CORPUSCULAR VOLUME 90.3 FL (80.0-94.0); MEAN PLATELET VOLUME 7.9 FL (7.4-10.4); PLATELET COUNT 224 /CUMM (130-400); RBC DISTRIBUTION WIDTH 13.5 % (11.5-14.5); RED BLOOD CELL CT 5.16 /CUMM (4.70-6.10)
--- NOTE | 2016-06-29 06:10 | NUR ---
PT ALERT, AWAKE, CALM AND COOPERATIVE. AWARE OF NEED FOR URINE SAMPLE. AWAITING RADIOLOGY.
--- NOTE | 2016-06-29 06:46 | NUR ---
PT TO AND FROM RADIOLOGY
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
--- NOTE | 2016-06-29 07:18 | NUR ---
CURRENTLY SLEEPING, EVEN UNLABORED BREATHING NOTED.
--- NOTE | 2016-06-29 08:45 | NUR ---
PT AMB TO XRAY WITH WATER TAXI CAPTAIN AND MST
--- NOTE | 2016-06-29 08:58 | RADIOLOGY REPORT ---
EXAMINATION: XR CHEST 2 VIEWS CLINICAL INFORMATION: Clinical question of TB. COMPARISON: Chest radiographs dated . TECHNIQUE: Frontal and lateral views of the chest were obtained. FINDINGS: The heart, great vessels, pulmonary vasculature and mediastinum are normal. The lungs show no focal infiltrate, effusion or pneumothorax. No mass, nodule or hilar adenopathy is seen. There is no acute osseous abnormality. IMPRESSION: No active cardiopulmonary disease.
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
--- NOTE | 2016-06-29 10:41 | NUR ---
Crisis consult completed and the patient is in need of an inpatient admission at this time. There are no beds on [facility] and therefore a bed search was started. The only hospital that has available beds, is [facility] and his clinical was faxed. Case discussed with Dr. Ghosh and he is in agreement with the plan.
--- NOTE | 2016-06-29 12:27 | NUR ---
PT CURRENTLY SLEEPING. RR EVEN AND UNLABORED. LUNCH TRAY AT BEDSIDE. SITTER AT DOORWAY AND LIGHTS DIMMED FOR COMFORT. BED SEARCH CONTINUES
--- NOTE | 2016-06-29 12:50 | NUR ---
Sw spoke to [facility] and they note that they have not been able to review Clinical at this time. The Qa Reviewer Cheyanne, states that the next clinician, that arrives at 3 will review.
--- NOTE | 2016-06-29 14:32 | NUR ---
PT CURRENTLY SLEEPING, RR EVEN AND UNLABORED.
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
--- NOTE | 2016-06-29 15:46 | NUR ---
REPORT RECEIVED FROM JAMAL TAVAREZ PT CONTINUES TO SLEEP REGULAR RESPIRATIONS NOTED SITTER REMAINS AT DOOR AWAITING DISPOSITION WILL CONTINUE TO MONITOR
--- NOTE | 2016-06-29 17:34 | NUR ---
PT MEDICATED WITH ZOFRAN ODT FOR COMPLAINTS OF NAUSEA PER ORDERS SITTER REMAINS AT DOOR WILL CONTINUE TO MONITOR.
--- NOTE | 2016-06-29 18:56 | NUR ---
PT REQUESTING NICOTINE PATCH, STATES HE SMOKES 1-2 PACKS/DAILY PATCH APPLIED TO [facility] PER ORDERS DR ANDREW.
--- NOTE | 2016-06-29 19:54 | NUR ---
mining engineering technologist met with pt. He is requesting to go home, saying at this time he does not have suicidal thoughts. "I'm just severely depressed". Consultation with Dr. Ferrer, pt cannot leave, and she asked me for pt to be placed on a PEC. [facility] denied the referral.
--- NOTE | 2016-06-29 20:21 | NUR ---
PT AWARE HE IS NOT BEING ALLOWED TO LEAVE D/T PEC. REQUESTING TO WASH UP/ BATH WIPES, TOOTHBRUSH AND TOOTHPASTE PROVIDED. PT CALM AND COOPERATIVE ABOUT POC. REQUESTING SOMETHING TO HELP HIM SLEEP. MD GOODSON AWARE. AWAITING ORDERS. SITTER PRESENT.
--- NOTE | 2016-06-29 20:26 | NUR ---
PT MEDICATED WITH TRAZADONE PER EMAR. TOLERATED WELL.
--- NOTE | 2016-06-29 22:03 | NUR ---
PT SLEEPING, REGULAR EVEN AND UNLABORED RESP NOTED. SITTER PRESENT.
--- NOTE | 2016-06-30 | NUR ---
PT SLEEPING, REGULAR RR NOTED SITTER PRESENT
--- NOTE | 2016-06-30 02:58 | NUR ---
PT SLEEPING WITH REGULAR RR NOTED, NO ACUTE DISTRESS NOTED.
--- NOTE | 2016-06-30 04:21 | NUR ---
PT SLEEPING REGULAR RR NOTED
--- NOTE | 2016-06-30 05:33 | NUR ---
AWOKE PATIENT FROM SLEEP. PATIENT CALM AND COOPERATIVE. VSS. PATIENT DENIES COMPLAINTS, STATES "JUST CAN'T WAIT FOR BREAKFAST." DENIES OFFER FOR CRACKERS AT THIS TIME, REPORTS "WILL WAIT UNTIL BREAKFAST GETS HERE." LIGHTS DIMMED. SITTER REMAINS W/ PATIENT.
--- NOTE | 2016-06-30 07:08 | NUR ---
ASSUMED CARE AT THIS TIME, PT AWAKE AND ALERT FOR VITALS. OFFERS NO COMPLAINTS AT THIS TIME, PT AWARE THAT CRISIS CONTINUES TO LOOK FOR BED PLACEMENT.
--- NOTE | 2016-06-30 08:46 | NUR ---
PT REMAINS CALM AND COPERATIVE, PROVIDED WITH FOOD TRAY
--- NOTE | 2016-06-30 11:30 | NUR ---
PT TOOK SHOWER IN BATHROOM WITH SITTER AT DOOR AND CHANGED INTO NEW PAPER SCRUBS. PT'S NICOTINE PATCH FELL OFF AND HE IS REQUESTING NEW ONE.
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
--- NOTE | 2016-06-30 12:03 | NUR ---
PT MEDICATED WITH MULTIVITAMIN, VIT B1 AND FOLIC ACID PER EMAR
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
[2016-06-30 13:46] VITALS: BP 144/70
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
[2016-06-30 16:13] VITALS: BP 137/81
[2016-06-30 16:16] VITALS: BP 137/81
[2016-06-30 19:53] VITALS: BP 144/75
[2016-06-30 20:02] VITALS: BP 144/75
--- NOTE | 2016-06-30 21:39 | NUR ---
Pt is out in the community interacts well with his peers mood is stable affect is in full range. Vital signs are stable appetite is good. Will continue to monitor the pt overnight.
[2016-06-30 22:36] VITALS: BP 107/53
[2016-07-01] VITALS (8 sets, daily range): BP systolic 113–155; BP diastolic 57–94
--- NOTE | 2016-07-01 06:03 | NUR ---
PATIENT SLEPT ALL NIGHT; CIWA ASSESSMENTS WNL.
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
--- NOTE | 2016-07-01 13:26 | NUR ---
PT IS LETHARGIC AND WITHDRAWN IN ROOM- SLEEPING MOST OF DAY. PT C/O NIGHT MEDS MAKING HIM FEEL SEDATED DURING THE DAY. PT MOOD IS STABLE WITH A FULL RANGE OF AFFECT. PT DENIES SI AT THIS TIME, NO COMPLAINTS OFFERED. NO S/S OF DETOX NOTED OR REPORTED- NO SCORING ON CIWA. PT IS PRESENT IN COMMUNITY FOR MEALS AND VITALS. PT INTERACTING WITH OTHERS WHEN OUT OF BED. PT HAS REFUSED GROUPS. VITALS ARE STABLE, APPETITE IS GOOD.
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
--- NOTE | 2016-07-01 17:14 | SOCIAL WORKER PROG NOTE PSYCH ---
Social Work Progress Note Progress Note Fernando was in bed late this afternoon and looked as if he is withdrawling from alcohol. He is having some shakiness and cold and hot sweats. Janis Cr APRN and I met with him together. He reports he was drinking alot prior to coming to the hospital. He said it was more than a handle a day of cheap liquor. He reports that he never received any medication in the ER for withdrawl. He was also using some cannabis and cocaine, but didn't know exactly how much. He did say the cocaine use was daily. Fernando will be started on an Ativan taper today. He is in agreement at this time to go to rehab. He has never been to a 30 day rehab, so we will focus on looking at short term programs first. I told Fernando I will give him a list of places to try and call tomorrow and we will start referrals. He denies any SI, but admits to just drinking himself to because he didn't want to stop. Feels hopeless. A friend had him come to the hospital. He has no where to live and has been living out of his car for the past 7-10 days. He was willing to see if his Mom was available to come in for a meeting. He signed a release for her.
--- NOTE | 2016-07-01 21:27 | NUR ---
PT IS CALM, COOPERATIVE WITH STAFF AND PEERS, AND COMPLIANT WITH UNIT RULES. PT IS OFTEN IN [place], INTERACTING WELL WITH OTHERS. MOOD IS STABLE, AFFECT IS EUTHYMIC TO FULL RANGE, COMMUNICATION IS ORGANZIED AND APPEARS NORMAL IN ALL RESPECTS, AND APPETITE IS NORMAL. PT DENIES SI AT THIS TIME.
[2016-07-02] VITALS (8 sets, daily range): BP systolic 134–151; BP diastolic 71–90
--- NOTE | 2016-07-02 08:13 | CP SOUTH PROGRESS NOTE PSYCH ---
Psych (Inpt) Progress Note Progress Note Include the following elements, when applicable: Involvement in the active treatment of the patient with behavioral observations of the patient and the patient's response to the treatment. Review of the ongoing treatment process in the context of the treatment plan. Indication of how multi-disciplinary staff members are carrying out the treatment plan. Plans for future interventions and recommendations for revision of the treatment plan. Liaison with other physicians/providers. Progress Note: I discussed this patient's progress to date, current mental status, treatment process in the context of the treatment plan, and discharge planning with staff/ team in the daily morning inpatient team meeting. I also met with the patient myself in individual session. OBJECTIVE: Current Medications Sig/Tayler Start time Last Medication Dose Route Stop Time Status Admin Acetaminophen 650 MG Q4P PRN 06/30 1100 AC PO Al Hydroxide/Mg 30 ML Q4-6 PRN PRN 06/30 1100 AC 06/30 Hydroxide PO 2208 Escitalopram Oxalate 10 MG DAILY 07/01 1000 AC 07/02 PO 0803 Folic Acid 1 MG DAILY 06/30 1056 AC 07/02 PO 0802 Glycerin 2 SPRAY Q2P PRN 07/01 1700 AC PO Lorazepam 0.5 MG 0800 07/06 0800 AC PO 07/06 0801 Lorazepam 0.5 MG 0800,1400,07/05 0800 AC PO 07/05 2000 Lorazepam 0.5 MG 1400 07/04 1400 AC PO 07/04 1401 Lorazepam 1 MG 0800,07/04 0800 AC PO 07/04 2000 Lorazepam 0.5 MG 2200 07/03 2200 AC PO 07/03 2201 Lorazepam 1 MG 0800,1400,07/03 0800 AC PO 07/03 2000 Lorazepam 1.5 MG 0800,1400,07/02 0800 AC 05/ PO 07/02 2001 0802 Lorazepam 2 MG 2200 07/01 2200 DC 07/01 PO 07/01 2201 2210 Lorazepam 2 MG Q2 HRS NEEDED PRN 07/01 1630 AC PO Lorazepam 1 MG ONE TIME ONE 07/01 1615 CAN PO 07/01 1616 Lorazepam 2 MG ONCE ONE 07/01 1615 DC 07/01 PO 07/01 1616 1608 Lorazepam 2 MG TID 06/30 1600 DC 07/01 PO 07/01 1000 1103 Lorazepam 1 MG Q2 HRS NEEDED PRN 06/30 1100 AC PO Magnesium Hydroxide 30 ML AT BEDTIME PRN 06/30 1100 AC PO Multivitamins 1 TAB DAILY 06/30 1056 AC 07/02 PO 0803 Nicotine 21 MG DAILY 06/30 1449 AC 07/01 TOP 1102 Nicotine 2 MG Q2 HRS NEEDED PRN 06/30 1100 AC 07/01 PO 2036 Olanzapine 10 MG AT BEDTIME 06/30 2200 AC 07/01 PO 2210 Thiamine HCl 100 MG DAILY 06/30 1056 AC 07/02 PO 0803 Trazodone HCl 50 MG AT BEDTIME NEED.. 07/01 1615 AC 07/01 PO 2210 Trazodone HCl 100 MG AT BEDTIME 06/30 2200 DC 06/30 PO 220 Vital Signs Date Time Temp Pulse Resp B/P B/P Pulse O2 O2 Flow FiO2 Mean Ox Delivery Rate 07/01 2028 97.4 109 144/87 07/01 2026 97.4 109 144/87 07/01 1642 108 134/87 07/01 1641 108 134/87 07/01 1241 98 155/94 07/01 1240 98 155/94 ASSESSMENT: Chart, progress notes, VS, labs, CIWA scores (did not score over last 24 hours), and medication list were reviewed. HR mildy tachy, and BP mildly elevated over last 24 hours likely 2/2 to alcohol withdrawal. Met with patient this morning at 8:05AM. Behavior was calm and cooperative. Mood appeared pleasant. He reported his mood as "better than yesterday, but tired." He reported feeling physically unwell yesterday and attributed this to alcohol withdrawal. This morning, there is no evidence of diaphoresis, tremors, n/v, tactile hallucinations, visual distrubances, or headache. Speech was normal in rate, tone and volume. Eye contact was appropriate. He reported that tiredness was from prn Trazodone. I asked him if he took this with his scheduled HS medications; he said yes. Educated patient on taking trazodone only as needed for insomnia. Also offered alternatives to trazodone given reports of morning tiredness. Patient declined trials of Melatonin and Atarax. Was agreeable to take Trazodone only as needed. He shared feeling optimistic about calling residential programs today. He expressed having some anxiety about getting things in order (i.e. packing clothes, updating his cell phone, going home first prior to rehab, clearing upcoming court date). Encouraged patient to take things a day at a time; to first complete phone screenings for programs, then focus on the next step. Anxiety: 6/10 (10 being the worst). Depression: 3/10 (10 being the worst). He denied passive/active suicidal ideation, plans, intent. Denied homicidal ideation. Denied AH, VH, PI. No evidence of paranoia, claudia, delusions. Thought process was goal-directed. Congition grossly intact. He reported tolerating retrial of Zyprexa and Lexapro well. He denied acute untoward medication effects. Reported some xerostomia, but reported this to be tolerable. Pt was reminded of prn oasis mouth spray which is ordered to combat SE. Also encouraged to increase po fluids, or take hard candies, cough drops. PLAN: 1. Continue monitoring for safety, mood and alcohol withdrawal. 2. Continue CIWA protocol and ativan taper as ordered. 3. Continue current doses of Zyprexa and Lexapro for mood stabilization and depression. 4. Dispo planning per primary team.
--- NOTE | 2016-07-02 12:59 | NUR ---
PT IS IRRITABLE, ISOLATIVE AND WITHDRAWN, REFUSING GROUPS BUT OUT OF BED FOR VITAL SIGNS AND FOOD, MEDICATION COMPLIANT, FULL RANGE AFFECT, PT WENT TO ROOM AFTER LUNCH AND HAD AN OUTBURT CURSING AND YELLING THAT HE CAN'T GET THROUGH TO ANY PROGRAMS AND ITS VERY DIFFICULT BECAUSE ALL HE GETS IS A VOICEMAIL, VOICING (LOUDLY) FRUSTRATION, ABLE TO SELF-SOOTH AND RETURNED TO ROOM.
--- NOTE | 2016-07-02 14:54 | SOCIAL WORKER PROG NOTE PSYCH ---
See Addendum Social Work Progress Note Progress Note Fernando was given a list of rehabs to call today. He shared he has court tomorrow in [place]. He said his brother was going to go there to let them know he was here. I told him we could fax a letter. He went to a group today, but I believe a majority of his day was spent in his bedroom. I got him out of bed to follow up on rehab referrals. He continues to say that he is not going to rehab if they won't allow his phone. He then went on to say that he'll just do IOP if he can't get into rehab. I asked where he would be living? He said "On the street". I told him that I didn't think that was a good option. He is here again. He stated that he is trying to see about returning to his parents home. I redirected him to focus on the referrals to rehab right now. I had him sign releases for [facility], [facility], [facility], and the [facility]. Faxed all the clinical to each program.
--- NOTE | 2016-07-02 22:04 | NUR ---
PT IS VISIBLE ON UNIT, SOCIALIZING WITH PEERS AND PLAYING CARDS IN KITCHEN. COOPERATIVE AND COMPLIANT WITH STAFF. ATTENDED WRAP UP MEETING. SHAVED HIS FACE THIS EVENING. NO COMPLAINTS OR SI REPORTED. PT HAS A STABLE MOOD AND FULL RANGE AFFECT.
[2016-07-03] VITALS (7 sets, daily range): BP systolic 140–146; BP diastolic 73–78
--- NOTE | 2016-07-03 14:22 | NUR ---
PT IS ISOATLIVE IN ROOM FOR MOST OF THE SHIFT. PT IS COMPLIANT WITH STAFF WHEN ASKED. PT IS NOT ATTENDING GROUPS. PT MOOD IS STABLE WITH A FLAT AFFECT. PT DENIES SI THOUGHTS.
--- NOTE | 2016-07-03 15:12 | CP SOUTH PROGRESS NOTE PSYCH ---
Psych (Inpt) Progress Note Progress Note Include the following elements, when applicable: Involvement in the active treatment of the patient with behavioral observations of the patient and the patient's response to the treatment. Review of the ongoing treatment process in the context of the treatment plan. Indication of how multi-disciplinary staff members are carrying out the treatment plan. Plans for future interventions and recommendations for revision of the treatment plan. Liaison with other physicians/providers. Progress Note: The patient is a 25-year-old white male admitted on 06/30/16. He carries the diagnosis bipolar disorder, most recent episode depressed, alcohol use disorder, stimulant use disorder, cannabis use disorder and nicotine use disorder. Case and treatment plan discussed in team meeting. Staff reports that the patient called 2 rehab facilities. Has a low frustration tolerance. Plans to refuse rehabs that will not accept his using cell phone and cigarettes. Homeless. Family meeting with mother is scheduled for 3 PM. Patient seen at 11:41 AM with medical studentSally. Patient feels tired. He appears mildly sedated. Affect is calm and blunted. Denies having withdrawal symptoms. Mood is good. Still feeling depressed. Reports he is trying to get into a 30 day program. He is frustrated with the limitations on phone use here. He is pleased to hear family meeting with his mother will be at 3 PM. Reports mother will not take him in unless he completes a 30 day program. [facility] [place] or to [place]. If he is not allowed phone access at a rehab, he wants to go to an [facility]. Rates sad mood about 2/10 and anxiety about 5/10. Feels hopeless, helpless and worthless. Feels guilty for stealing. Denies active suicidal ideation. Reports passive suicidal ideation. He gives a safety promise for here. Denies homicidal ideation. Denies auditory and visual hallucinations. Denies paranoid ideation. Reports he is sleeping through the night and also sleeping a lot. Reports he is trying to sleep away the days and reports he does not like groups here. Appetite is good. Energy: reports he is tired all the time. Tolerating current medications well. IMPRESSION: Slow progress. Continue present treatment plan. I informed the patient that he is on multiple sedating medications but that his fatigue is most likely due to the lorazepam being used for detox. Patient continues to require inpatient level of care.
--- NOTE | 2016-07-03 17:28 | SOCIAL WORKER PROG NOTE PSYCH ---
Social Work Progress Note Progress Note Rachna called from [facility] stating she would like some additional information to be faxed. She said she would not be able to do a phone screening with Fernando until Thursday at 10am. She does anticipate bed movement. Called Edgard at the [facility] and left a message. Fernando called [facility] as well. He was told there were no beds right now. Fernando's Mom Sadia came in for a family meeting. Fernando talked at the meeting about how he is not going to rehab without going home first for a couple of hours to get his clothes and set up his new phone. I talked about where his priorities seemed to be ie; setting up a phone vs. his recovery and life. He was very stubborn and continued to say that he would not go to rehab unless it was on "his terms." I empathized that things are out of his control, but reminded him that right now his illness is out of control. He needs to let the program and hospital decide what is best at this time. His Mom didn't say alot during the meeting, but did ask me if I could ask the program if it would be ok in her supervision to bring him home for a couple of hours before coming. I told her I could ask, but it really was not recommended and risky. I reminded both that his detox from the [facility] is over on Thursday and that there was no guarentee that he could go there Thursday and that is where the [facility] could be helpful, again if there is a bed. After the meeting, Fernando came up to me and apologized for his behavior in the meeting and that he is open to going door to door if that could work out.
--- NOTE | 2016-07-03 20:53 | NUR ---
PT IS VISIBLE ON UNIT, SOCIALIZING WITH PEERS AND PLAYING GAMES IN KITCHEN. ATTENDED AA THIS EVENING. COOPERATIVE AND COMPLIANT WITH STAFF. NO COMPLAINTS OR SI REPORTED. PT HAS A STABLE MOOD AND FULL RANGE AFFECT.
[2016-07-04] VITALS (7 sets, daily range): BP systolic 124–155; BP diastolic 52–88
--- NOTE | 2016-07-04 13:26 | SOCIAL WORKER PROG NOTE PSYCH ---
Social Work Progress Note Progress Note Talked to Edgard at the [facility]. Edgard will screen Fernando today for a possible admission Thursday. Informed him he will be doing a screening with [facility] on Thursday. Prompted Fernando out of bed to do the phone screening with [facility]. Fernando shared that it went well and he'll go there Thursday. He will plan to get into [facility] from there. He will call family to inform them and see if they can bring his clothes over the weekend. Called Edgard at [facility] to confirm admission on Thursday and this is the plan. He will require paper scripts to bring with him. I filled out a referral to use [facility] for transport. Faxed it to them this afternoon.
--- NOTE | 2016-07-04 14:40 | CP SOUTH PROGRESS NOTE PSYCH ---
Psych (Inpt) Progress Note Progress Note Include the following elements, when applicable: Involvement in the active treatment of the patient with behavioral observations of the patient and the patient's response to the treatment. Review of the ongoing treatment process in the context of the treatment plan. Indication of how multi-disciplinary staff members are carrying out the treatment plan. Plans for future interventions and recommendations for revision of the treatment plan. Liaison with other physicians/providers. Progress Note: I discussed this patient's progress to date, current mental status, treatment process in the context of the treatment plan, and discharge planning with staff/ team in the daily morning inpatient team meeting. I also met with the patient myself in individual session. Current Medications Sig/Tayler Start time Last Medication Dose Route Stop Time Status Admin Acetaminophen 650 MG Q4P PRN 06/30 1100 AC PO Al Hydroxide/Mg 30 ML Q4-6 PRN PRN 06/30 1100 AC 06/30 Hydroxide PO 2208 Escitalopram Oxalate 10 MG DAILY 07/01 1000 AC 07/04 PO 0812 Folic Acid 1 MG DAILY 06/30 1056 AC 07/04 PO 0812 Glycerin 2 SPRAY Q2P PRN 07/01 1700 AC PO Lorazepam 0.5 MG 0800 07/06 0800 AC PO 07/06 0801 Lorazepam 0.5 MG 0800,1400,07/05 0800 AC PO 07/05 2000 Lorazepam 0.5 MG 1400 / 1400 DC 07/04 PO 07/04 1401 1303 Lorazepam 1 MG 0800,07/04 0800 AC / PO 07/04 2000 08 Lorazepam 0.5 MG 2200 07/03 2200 DC 07/03 PO 07/03 2201 2151 Lorazepam 1 MG 0800,1400,07/03 0800 DC 07/03 PO 07/03 Lorazepam 2 MG Q2 HRS NEEDED PRN 07/01 1630 AC PO Lorazepam 1 MG Q2 HRS NEEDED PRN 06/30 1100 AC PO Magnesium Hydroxide 30 ML AT BEDTIME PRN 06/30 1100 AC PO Multivitamins 1 TAB DAILY 06/30 1056 AC 07/04 PO 0812 Nicotine 2 MG .STK-MED ONE 07/03 1544 DC PO 07/03 1545 Nicotine 21 MG DAILY 06/30 1449 AC 07/04 TOP 0813 Nicotine 2 MG Q2 HRS NEEDED PRN 06/30 1100 AC 07/04 PO 1303 Olanzapine 10 MG AT BEDTIME 06/30 2200 AC 07/03 PO 2151 Thiamine HCl 100 MG DAILY 06/30 1056 AC 07/04 PO 0812 Trazodone HCl 50 MG AT BEDTIME 07/04 2200 AC PO Trazodone HCl 50 MG AT BEDTIME NEED.. 07/01 1615 DC 07/03 PO 2152 Vital Signs Date Time Temp Pulse Resp B/P B/P Pulse O2 O2 Flow FiO2 Mean Ox Delivery Rate 07/04 1226 74 149/88 07/04 1207 74 149/88 07/04 0738 96.2 86 124/52 05 0738 96.2 86 124/52 07/03 2213 98.1 96 140/78 07/03 202 98.1 96 140/78 07/03 1622 92 144/73 07/03 1618 92 144 ASSESSMENT: Chart, progress notes, VS, labs, CIWA, and medication list reviewed. Vital signs within normal limits. No new lab results today. Met with patient this afternoon. He informed me that [facility] [place] and that he has a phone screening with [facility] on Thursday. He expressed anxiety over phone screening secondary to uncertainty of rehab. Reported in past, he had only been to [place] and hopes program is similar to this if he should be accepted. Redirected patient's anxiety onto priorities and the work required to maintain sobriety. Showed improved insight and judgement surrounding substance use - expressed feeling optimistic about not returning home with [facility] weekend approaching, as his parents will be having a libertarian which will include "lots of alcohol." He stated he has been talking to peers and playing cards on unit to distract self from anxiety. Reported anxiety of 8/10 (10 being the worst) and depression of 1/10 ( 10 being the worst). Denied suicidal ideation and homicidal ideation. Denied auditory and visual hallucinations. There was no evidence of paranoia or delusions. Speech was normal in rate, tone and volume. Eye contact was appropriate. Reported sleep and appetite were good. Reported improved energy level. Reported feeling less tired today as Ativan continues to taper. Thought process was linear. Cognition was grossly intact. Patient's mood and insight surrounding substance abuse are slowly improving. Patient tolerating meds without untoward effects. PLAN: 1. Continue monitoring for safety and mood. 2. Continue current medications. 3. Continue Ativan taper as ordered and [facility] protocol for etoh w/d. 4. [facility] phone screening Thursday and d/c to [facility].
--- NOTE | 2016-07-04 15:24 | NUR ---
PT MOST TIME IN BED. OOB FOR VS, MEALS, MEDS. PT NOT ATTENDING GROUPS. PT SOCIAL WITH PEERS. PT MOOD STABLE - FULL RANGE AFFECT.
--- NOTE | 2016-07-04 20:36 | NUR ---
PT IS SOCIAL AND COMPLIANT. HE APPEARS TO HAVE NO IMMEDIATE PROBLEMS WITH STAFF OR PEERS AND NO EMOTIONAL DISTURBANCES. PT DENIES ANY THOUGHTS OF SI AT THIS TIME.
[2016-07-05] VITALS (7 sets, daily range): BP systolic 130–154; BP diastolic 70–94
--- NOTE | 2016-07-05 04:14 | NUR ---
Slept. No issues or complaints
--- NOTE | 2016-07-05 13:18 | CP SOUTH PROGRESS NOTE PSYCH ---
Psych (Inpt) Progress Note Progress Note Include the following elements, when applicable: Involvement in the active treatment of the patient with behavioral observations of the patient and the patient's response to the treatment. Review of the ongoing treatment process in the context of the treatment plan. Indication of how multi-disciplinary staff members are carrying out the treatment plan. Plans for future interventions and recommendations for revision of the treatment plan. Liaison with other physicians/providers. Progress Note: Pt notes that he was "a little angry this morning because they kept waking me up," referring to VS and labs this AM. Notes good mood overall. Looking forward to sober housing. Denies SI or HI. Denies AVHs. Notes trazodone for sleep is helpful. Current Medications Sig/Tayler Start time Last Medication Dose Route Stop Time Status Admin Acetaminophen 650 MG Q4P PRN 06/30 1100 AC PO Al Hydroxide/Mg 30 ML .STK-MED ONE 07/046 DC Hydroxide PO 07/04 2047 Al Hydroxide/Mg 30 ML Q4-6 PRN PRN 06/30 1100 AC 07/05 Hydroxide PO 1232 Escitalopram Oxalate 10 MG DAILY 07/01 1000 AC 07/05 PO 0853 Folic Acid 1 MG DAILY 06/30 1056 AC 07/05 PO 0853 Glycerin 2 SPRAY Q2P PRN 07/01 1700 AC PO Lorazepam 0.5 MG 0800 07/06 0800 AC PO 07/06 0801 Lorazepam 0.5 MG 0800,1400,07/05 0800 AC / PO 07/05 2000 0852 Lorazepam 0.5 MG 1400 / 1400 DC 07/04 PO 07/04 1401 1303 Lorazepam 1 MG 0800,07/04 0800 DC 05 PO 07/04 2000 2050 Lorazepam 2 MG Q2 HRS NEEDED PRN 07/01 1630 AC PO Lorazepam 1 MG Q2 HRS NEEDED PRN 06/30 1100 AC PO Magnesium Hydroxide 30 ML AT BEDTIME PRN 06/30 1100 AC PO Multivitamins 1 TAB DAILY 06/30 1056 AC 07/05 PO 0853 Nicotine 21 MG DAILY 06/30 1449 AC 07/05 TOP 0853 Nicotine 2 MG Q2 HRS NEEDED PRN 06/30 1100 AC 07/05 PO 0627 Olanzapine 10 MG AT BEDTIME 06/30 2200 AC 07/04 PO 2225 Thiamine HCl 100 MG DAILY 06/30 1056 AC 07/05 PO 0853 Trazodone HCl 50 MG AT BEDTIME 07/04 2200 AC 07/04 PO 2225 Trazodone HCl 50 MG AT BEDTIME NEED.. 07/01 1615 DC 07/03 PO 2152 Laboratory Tests 07/05 06 Chemistry Sodium (137 - 145 mmol/L) 139 Vital Signs Date Time Temp Pulse Resp B/P B/P Pulse O2 O2 Flow FiO2 Mean Ox Delivery Rate 07/05 1232 98 154/84 07/05 1230 98 154/94 07/05 0811 96.3 87 130/72 07/05 0807 96.3 87 130/72 07/05 1999 97.7 98 155/79 07/04 1958 97.7 98 155/79 07/04 1551 95 146/70 07/04 1544 95 146/70 MSE Appears as stated age. Cooperative behavior, good, appropriate eye contact. Nl speech rate and prosody. No psychomotor retardation or agitation. Mood fine Affect slightly irritable, full range, appropriate, non-liable. Linear and goal directed thought process. Denies SI or HI. Does not appear to be responding to internal stimuli. Denies AVHs, paranoia, or delusions. I/J: limited A/P: Pt with MDD, unspecified anxiety disorder and PSD with improved mood. Tolerating detox well. - Last day ativan on 07/06 - CBC tomorrow AM for elevated WBC - Continue current medication regimen
--- NOTE | 2016-07-05 13:22 | NUR ---
Fernando was visible on the unit. No issues presented. Denies SH/SI/HI. Compliant with unit norms and expectations. Went to one group and expressed his irritability about being woekn up early for labs. Appears to not have much insight into his treatment.
--- NOTE | 2016-07-05 21:33 | NUR ---
interacting with peers playing cards and talking about shant and star wars. Has impressive knowledge of Star Wars. Mood is stable, full range of affect. denies thoughts of self harm when asked.
[2016-07-06] VITALS (8 sets, daily range): BP systolic 131–153; BP diastolic 74–87
--- NOTE | 2016-07-06 06:01 | NUR ---
PT SLEPT. PT STATES HE IS LEAVING EARLY.
[2016-07-06 07:54] LABS: ABSOLUTE BASOPHIL COUNT 0.1 /CUMM (0.0-0.2); ABSOLUTE EOSINOPHIL COUNT 0.3 /CUMM (0.0-0.7); ABSOLUTE GRANULOCYTE CT 3.6 /CUMM (1.4-6.5); ABSOLUTE LYMPH COUNT 3.9 /CUMM (1.2-3.4); ABSOLUTE MONOCYTE COUNT 0.9 /CUMM (0.10-0.60); BASOPHIL % 0.7 % (0.0-2.0); EOSINOPHIL % 3.1 % (0-5); GRANULOCYTE % 41.2 % (42.2-75.2); HEMATOCRIT 48.2 % (42-52); MEAN CORPUSCULAR HGB 30.5 PG (27.0-31.0); MEAN CORPUSCULAR HGB CONC 33.6 G/DL (33.0-37.0); MEAN CORPUSCULAR VOLUME 90.8 FL (80.0-94.0); MEAN PLATELET VOLUME 7.8 FL (7.4-10.4); PLATELET COUNT 237 /CUMM (130-400); RBC DISTRIBUTION WIDTH 13.3 % (11.5-14.5); RED BLOOD CELL CT 5.31 /CUMM (4.70-6.10); WHITE BLOOD CELL COUNT 8.7 /CUMM (4.8-10.8)
--- NOTE | 2016-07-06 12:03 | CP SOUTH PROGRESS NOTE PSYCH ---
Psych (Inpt) Progress Note Progress Note Include the following elements, when applicable: Involvement in the active treatment of the patient with behavioral observations of the patient and the patient's response to the treatment. Review of the ongoing treatment process in the context of the treatment plan. Indication of how multi-disciplinary staff members are carrying out the treatment plan. Plans for future interventions and recommendations for revision of the treatment plan. Liaison with other physicians/providers. Progress Note: Pt ntoes that he wants to be discharged immediately after intake but before friend picks him up as he wants to sit in car and listen to music. He denies SI or HI. Denies AVHs. Current Medications Sig/Tayler Start time Last Medication Dose Route Stop Time Status Admin Acetaminophen 650 MG .STK-MED ONE 07/05 1944 DC PO 07/05 194 Acetaminophen 650 MG Q4P PRN 06/30 1100 AC 07/05 PO 1950 Al Hydroxide/Mg 30 ML .STK-MED ONE 07/05 1227 DC Hydroxide PO 07/05 1228 Al Hydroxide/Mg 30 ML Q4-6 PRN PRN 06/30 1100 AC 07/05 Hydroxide PO 1232 Escitalopram Oxalate 10 MG DAILY 07/01 1000 AC 07/06 PO 0753 Folic Acid 1 MG DAILY 06/30 1056 AC 07/06 PO 0753 Glycerin 2 SPRAY Q2P PRN 07/01 1700 AC PO Lorazepam 0.5 MG 0800 07/06 0800 DC 07/06 PO 07/06 0801 0753 Lorazepam 0.5 MG 0800,1400,2000 07/05 0800 DC 07/05 PO 07/05 2000 1950 Lorazepam 2 MG Q2 HRS NEEDED PRN 07/01 1630 AC PO Lorazepam 1 MG Q2 HRS NEEDED PRN 06/30 1100 AC PO Magnesium Hydroxide 30 ML AT BEDTIME PRN 06/30 1100 AC PO Multivitamins 1 TAB DAILY 06/30 1056 AC 07/06 PO 0754 Nicotine 21 MG DAILY 06/30 1449 AC 07/06 TOP 0754 Nicotine 2 MG Q2 HRS NEEDED PRN 06/30 1100 AC 07/06 PO 0857 Olanzapine 10 MG AT BEDTIME 06/30 2200 AC 07/05 PO 2136 Thiamine HCl 100 MG DAILY 06/30 1056 AC 07/06 PO 0754 Trazodone HCl 50 MG AT BEDTIME 07/04 2200 AC 05/06 PO 2136 Laboratory Tests 07/06 07/05 0629 0610 Chemistry Sodium (137 - 145 mmol/L) 139 Hematology CBC w Diff NO MAN DIFF REQ WBC (4.8 - 10.8 /CUMM) 8.7 RBC (4.70 - 6.10 /CUMM) 5.31 Hgb (14.0 - 18.0 G/DL) 16.2 Hct (42 - 52 %) 48.2 MCV (80.0 - 94.0 FL) 90.8 MCH (27.0 - 31.0 PG) 30.5 RDW (11.5 - 14.5 %) 13.3 Plt Count (130 - 400 /CUMM) 237 MPV (7.4 - 10.4 FL) 7.8 Gran % (42.2 - 75.2 %) 41.2 L Lymphocytes % (20.5 - 51.1 %) 44.7 Monocytes % (1.7 - 9.3 %) 10.3 H Eosinophils % (0 - 5 %) 3.1 Basophils % (0.0 - 2.0 %) 0.7 Absolute Granulocytes (1.4 - 6.5 /CUMM) 3.6 Absolute Lymphocytes (1.2 - 3.4 /CUMM) 3.9 H Absolute Monocytes (0.10 - 0.60 /CUMM) 0.9 H Absolute Eosinophils (0.0 - 0.7 /CUMM) 0.3 Absolute Basophils (0.0 - 0.2 /CUMM) 0.1 PUBS MCHC (33.0 - 37.0 G/DL) 33.6 Vital Signs Date Time Temp Pulse Resp B/P B/P Pulse O2 O2 Flow FiO2 Mean Ox Delivery Rate 07/06 822 96.4 83 131/74 07/06 0811 96.4 83 131/74 07/06 2003 98.2 98 148/84 07/05 195 98.2 98 148/84 07/05 1551 100 149/70 07/05 1232 98 154/84 07/05 1230 98 154/94 MSE Appears as stated age. Cooperative behavior, good, appropriate eye contact. Nl speech rate and prosody. No psychomotor retardation or agitation. Mood vgood Affect not irritable, full range, appropriate, non-liable. Linear and goal directed thought process. Denies SI or HI. Does not appear to be responding to internal stimuli. Denies AVHs, paranoia, or delusions. I/J: limited A/P: Pt with MDD, unspecified anxiety disorder and PSD with improved mood. Tolerating detox well. - Last day ativan on 07/06 - CBC at AM for elevated WBC now wnl - Continue current medication regimen - Please see above for pts preferred discharge arrangement.
--- NOTE | 2016-07-06 13:23 | NUR ---
PT IS BRIGHT, HYPERVERBAL, LOUD AND EXCITED FOR DC TOMORROW. PT REPORTS "I CANNOT WAIT TO LISTEN TO MY MUSIC AND SMOKE A CIGARETTE".PT WENT TO [employer] [employer] AND SET GOAL TO WATCH MOVIES AND RELAX. PT DID NOT GO TO [employer]. PT EATS FOOD, TALKS TO PEERS AND THEN SLEEPS FOR MOST OF AM SHIFT. VS ARE STABLE AND DENIES ANY SI/HI TO THIS MHW.
--- NOTE | 2016-07-06 22:31 | NUR ---
PT IS CALM, COOPERATIVE WITH STAFF AND PEERS, AND COMPLIANT WITH UNIT RULES. PT IS OFTEN IN [place], INTERACTING WELL WITH OTHERS. MOOD IS STABLE, AFFECT IS BRIGHT TO FULL RANGE, COMMUNICATION IS ORGANIZED AND APPEARS NORMAL IN ALL RESPECTS, AND APPETITE IS NORMAL. PT DENIES SI AT THIS TIME.
--- NOTE | 2016-07-07 05:26 | NUR ---
PT BIDING HIS TIME, AWAITING [facility] THEN REHAB. PT WENT TO BED EARLY AND SLEPT. PT STATES HE IS LEAVING THIS MORNING AND HE WOULD LIKE TO SMOKE AND LISTEN TO MUSIC FOR A FEW HOURS BEFORE GOING TO [facility]. PT WITH QUESTIONABLE PRIORITIES.
[2016-07-07 07:40] VITALS: BP 143/70
--- NOTE | 2016-07-07 07:49 | NUR ---
PT IS SCHEDULED FOR D/C TODAY TO [facility] IN [place]. HE HAS A PHONE SCREENING WITH [facility]. HE REPORTS AND DEMONSTRATES IMPROVEMENT IN MOOD AN ABILITY TO FUNCTION. HE IS LOOKING FORWARD TO TAKING THE NEXT STEP AND HE STATES HE IS MOTIVATED TO BE CLEAN. HE DENIES ANY THOUGHTS OF SUICIDE OR SELF HARM AND HE HAS FULL RANGE OF AFFECT. HE IS GIVEN EDUCATION R/T MANAGING HIS MOOD D/O AND ON SUICIDE PREVENTION
[2016-07-07 07:56] VITALS: BP 143/70
[2016-07-07] MEDS ORDERED: ONE DAILY MULT1 EAC2 PO (08:32)
[2016-07-07] MEDS ORDERED: OLANZAPINE10 M1 PO (08:32)
[2016-07-07] MEDS ORDERED: TRAZODONE HCL50 M1 PO (08:32)
[2016-07-07] MEDS ORDERED: LEXAPRO10 M1 PO (08:32)
[2016-07-07] MEDS ORDERED: NICOTINE PATCH1 EAC3 TOP (08:32)
--- NOTE | 2016-07-07 08:39 | CP SOUTH PROGRESS NOTE PSYCH ---
Psych (Inpt) Progress Note Progress Note Include the following elements, when applicable: Involvement in the active treatment of the patient with behavioral observations of the patient and the patient's response to the treatment. Review of the ongoing treatment process in the context of the treatment plan. Indication of how multi-disciplinary staff members are carrying out the treatment plan. Plans for future interventions and recommendations for revision of the treatment plan. Liaison with other physicians/providers. Progress Note: I discussed this patient's progress to date, current mental status, treatment process in the context of the treatment plan, and discharge planning with staff/ team in the daily morning inpatient team meeting. I also met with the patient myself in individual session. OBJECTIVE: Current Medications Sig/Tayler Start time Last Medication Dose Route Stop Time Status Admin Acetaminophen 650 MG Q4P PRN 06/30 1100 AC 07/05 PO 1950 Al Hydroxide/Mg 30 ML Q4-6 PRN PRN 06/30 1100 AC 07/05 Hydroxide PO 1232 Escitalopram Oxalate 10 MG DAILY 07/01 1000 AC 07/07 PO 0732 Folic Acid 1 MG DAILY 06/30 1056 DC 07/07 PO 0732 Glycerin 2 SPRAY Q2P PRN 07/01 1700 AC PO Lorazepam 2 MG Q2 HRS NEEDED PRN 07/01 1630 DC PO Lorazepam 1 MG Q2 HRS NEEDED PRN 06/30 1100 DC PO Magnesium Hydroxide 30 ML AT BEDTIME PRN 06/30 1100 AC PO Multivitamins 1 TAB DAILY 06/30 1056 AC 07/07 PO 0733 Nicotine 21 MG DAILY 06/30 1449 AC 07/06 TOP 0754 Nicotine 2 MG Q2 HRS NEEDED PRN 06/30 1100 AC 07/06 PO 2048 Olanzapine 10 MG AT BEDTIME 06/30 2200 AC 07/06 PO 2048 Thiamine HCl 100 MG DAILY 06/30 1056 DC 07/07 PO 0732 Trazodone HCl 50 MG AT BEDTIME 07/04 2200 AC 07/06 PO 2149 Laboratory Tests 07/06 07/05 0629 0610 Chemistry Sodium (137 - 145 mmol/L) 139 Hematology CBC w Diff NO MAN DIFF REQ WBC (4.8 - 10.8 /CUMM) 8.7 RBC (4.70 - 6.10 /CUMM) 5.31 Hgb (14.0 - 18.0 G/DL) 16.2 Hct (42 - 52 %) 48.2 MCV (80.0 - 94.0 FL) 90.8 MCH (27.0 - 31.0 PG) 30.5 RDW (11.5 - 14.5 %) 13.3 Plt Count (130 - 400 /CUMM) 237 MPV (7.4 - 10.4 FL) 7.8 Gran % (42.2 - 75.2 %) 41.2 L Lymphocytes % (20.5 - 51.1 %) 44.7 Monocytes % (1.7 - 9.3 %) 10.3 H Eosinophils % (0 - 5 %) 3.1 Basophils % (0.0 - 2.0 %) 0.7 Absolute Granulocytes (1.4 - 6.5 /CUMM) 3.6 Absolute Lymphocytes (1.2 - 3.4 /CUMM) 3.9 H Absolute Monocytes (0.10 - 0.60 /CUMM) 0.9 H Absolute Eosinophils (0.0 - 0.7 /CUMM) 0.3 Absolute Basophils (0.0 - 0.2 /CUMM) 0.1 PUBS MCHC (33.0 - 37.0 G/DL) 33.6 Vital Signs Date Time Temp Pulse Resp B/P B/P Pulse O2 O2 Flow FiO2 Mean Ox Delivery Rate 07/07 0756 96.1 87 143/70 /08 0740 96.1 87 143/70 /07 2046 98.1 88 148/78 05/07 1953 98.1 88 148/78 05/07 1608 94 153/83 05/07 1555 94 153/83 05/07 1227 88 150/87 05/ 1207 88 150/87 ASSESSMENT: Chart, progress notes, VS, labs, CIWA (not scoring over last 48 hours; discontinued today). Vital signs within normal limites. Rpt CBC showed WBC wnl. Met with patient today on the date of discharge. He presented alert and oriented to person, place, time and situation. Speech was normal in rate, tone and volume. Affect was full-range. Mood was "good." He had no complaints. He expressed that he would prefer to be discharged prior to his scheduled ride arrived so that he could listen to music on his phone. Patient was informed that he will need to go [id number] from [facility] and that he might be allowed to listen to music on the ride to [facility]. Emphasized again to patient, the priority of his recovery and that sacrifices will need to be made at each facility going forward to adhere to their rules. Patient verbalized understanding and was agreeable to feedback. He denied urges/ cravings to use substances. He denied feeling hopeless, helpless, worthless, or guilty. He rated his depression a 2/10 (10 being the worst) and anxiety a 5/10 ( 10 being the worst). He denied passive and active suicidal ideation, plans and intent. He stated and also believed he will not harm himself or others. He identified protective factor of his mother. He denied homicidal ideation, auditory and visual hallucinations. Denied paranoid ideation. There was no evidence of nilton delusions. Thought process was organized and linear. Cognition was grossly intact. Insight and judgement remained limited. He reported tolerating all medications well and denied untoward medication effects. He reported feeling safe and ready for discharge. PLAN: 1. Discharge this morning to [facility]. To be picked up from hospital by [facility] and directly transported to [facility]. 2. F/u with DARLENE, in [facility] regarding resumption of TB medications. Appointment scheduled on 07/10/16 at 1PM. 3. Abstain from all substances. Attend daily AA meetings and obtain a sponsor for support in sobriety. 4. In the event of an emergency, call 911/go to nearest emergency department. Patient verbalized understanding of instructions.
--- NOTE | 2016-07-07 08:41 | DISCHARGE SUMMARY REPORT-PSYCH ---
Visit Information Visit Dates/Diagnosis' Admission Date: 06/30/16 Discharge Date: 07/07/16 Reason for Admission: Alcohol detox and suicidal ideation. Psy Discharge Primary Diag: Bipolar disorder, unspecified, most recent episode depressed. Psy Discharge Secondary Diag: Alcohol use disorder, severe; Stimulant use disorder, severe; Cannabis use disorder, severe; Nicotine use disorder; Latent TB. Hospital Course Significant Lab Findings: Lab ALT 126 U/L H 06/29/16 0435 AST 43 U/L 06/29/16 0435 Cholesterol 188 MG/DL 09/29/15 0744 Cholesterol/HDL Ratio 5 % H 09/29/15 07 HDL Cholesterol 38 mg/dL L 09/29/15 07 LDL Cholesterol, Calc 125 mg/dL 09/29/15743 TSH 2.510 uIU/mL 06/09/16 0536 Triglycerides 129 mg/dL 09/29/1544 Serum Alcohol 90.0 MG/DL 06/29/16434 Urine Cannabis Screen > 80.00 NG/ML H 06/29/16827 Urine Cocaine Screen > 1000 NG/ML H 06/29/1628 Course Complications: None. Consultations: The patient was seen for admission history and physical by deli cook Dr. Cailin Holder. Please see his note for additional information. Per Dr. Holder' recommendation, patient is to follow-up with [facility] to resume latent TB medications. Per Dr. Holder the patient does NOT require isolation precautions. Allergies: Coded Allergies: shellfish derived (Intermediate, ANAPHYLAXIS 08/20/15) fluticasone (From FLONASE) (OPPOSITE REACTION - EYES WATER, NOSE IS STUFFY, STUFFY THROA 08/19/15) Hospital Course/TX Response: The patient was monitored on the unit for safety, mood, suicidal ideation and alcohol withdrawal. He was monitored on CIWA protocol and completed an Ativan taper without complications. Prior to inpatient psychiatric admission, the patient was nonadherent to prescribed medications. He was restarted on Zyprexa 10mg at bedtime for mood stabilization, Lexapro 10mg every morning for depression/anxiety, Trazodone 50mg at bedtime for insomnia and a daily multivitamin for vitamin support. He reported tolerating all medications well and denied side effects. During the hospital course, the patient successfully detoxed from alcohol. His mood and affect improved. Suicidal ideation remitted. A family meeting was held with the patient, his mother, and [place]ia Rendon LCSW. The patient's treatment progress to date, severity of his substance abuse, level of safety and discharge planning were reviewed and discussed. The patient's mother did not express any acute safety concerns regarding the patient's discharge, and was in support of the patient transitioning to a residential rehab/sober living environment. With encouragement, the patient was also in favor of discharge plan. On the date of discharge, 07/07/16, the patient presented alert and oriented to person, place, time and situation. Speech was normal in rate, tone and volume. Affect was full-range. Mood was "good." He had no complaints. He expressed his preference to be discharged prior to the arrival of his scheduled ride so he could listen to music on his phone. Patient was informed that he would need to discharge [id number] from [facility] to [facility] and that he might be allowed to listen to music on the ride to [facility]. Emphasized again to patient, the priority of his recovery and that sacrifices would need to be made at each facility going forward to promote his recovery. Patient verbalized understanding and was agreeable to feedback. He denied urges/cravings to use substances. He denied feeling hopeless, helpless, worthless, or guilty. He rated his depression a 2/10 (10 being the worst) and anxiety a 5/10 (10 being the worst). He denied passive and active suicidal ideation, plans and intent. He stated and also believed he will not harm himself or others. He identified protective factor of his mother. He denied homicidal ideation, auditory and visual hallucinations. Denied paranoid ideation. There was no evidence of nilton delusions. Thought process was organized and linear. Cognition was grossly intact. Insight and judgement remained limited. He reported tolerating all medications well and denied untoward medication effects. He reported feeling safe and ready for discharge. Discharge HBIPS - Tobacco Use Treatment Offered Post DC Medications Offered: Script Given-See Med List Post DC Tobacco Treatment Plan: Refused Tobcco Tx Pgm - EtOH/Drug Use D/O Treatment Offered Post DC Medications Offered: Ref Med EtOH/Drug Use D/O Post DC EtOH/SubAbuse TX Plan: Other SubAbuse/Dual Pgm Program Appt Date: 07/07/16 Metabolic Screening - Screen if on a Neuroleptic Medication - Metabolic screening should include: - Blood Pressure, BMI, Glucose or Hgb A1c, & a - Lipid profile from within the past 365 days. Metabolic Screening () Not Applicable, patient not on a neuroleptic. OR ([X]) Patient on a neuroleptic(s) . Enter below results for Glucose or Hemoglobin A1C, and lipid panel if obtained during the last 365 days. BMI: 32.500 Blood Pressure: 143/70 Laboratory Results (If applicable): Lab Cholesterol 188 MG/DL 09/29/15 0744 Cholesterol/HDL Ratio 5 % H 09/29/15 0744 Glucose 97 mg/dL 06/29/16 0435 HDL Cholesterol 38 mg/dL L 09/29/15 0744 Hemoglobin A1c 5.6 % 08/19/15 0241 LDL Cholesterol, Calc 125 mg/dL 09/29/15 0744 Triglycerides 129 mg/dL 09/29/15 0744 Discharge Instructions General Discharge Information Discharge Medications: Discharge Medications- (Dose, route, freq, indication): START taking these NEW Home Medications: Nicotine (Nicotine Dose: On the skin, DAILY for Qty: 14 Printed Patch) 21 MG/24 HOUR 21 Milligram tobacco cessation Refills: 1 PATCH.TD24 Apply 1 patch topically to upper arm QAM and remove before HS. Last Taken:729 Time:07/06/16 Escitalopram Oxalate Dose: ORAL, DAILY for Qty: 14 Printed (Lexapro) 10 MG 10 Milligram depression/anxiety Refills: 1 TABLET Take 1 tab po QAM. Last Taken:07/07/16 Time:30 Trazodone HCl Dose: ORAL, AT BEDTIME for Qty: 14 Printed (Trazodone HCl) 50 50 Milligram insomnia Refills: 1 MG TABLET Take 1 tab po QHS. Last Taken:07/06/16 Time:2200 Olanzapine Dose: ORAL, AT BEDTIME for Qty: 14 Printed (Olanzapine) 10 MG 10 Milligram mood stabilization Refills: 1 TABLET Take 1 tab po QHS. Last Taken:07/06/16 Time:1999 Multivitamin (One Dose: ORAL, DAILY for vitamin Qty: 30 Printed Daily Multivitamin) 1 Tablet support Refills: 0 1 EACH TABLET Take 1 tab po daily. Last Taken:07/07/16 Time:0730 Multiple Neuroleptics: ([X]) Not Applicable OR Document below three failed attempts at monotherapy, or a plan to taper to monotherapy, or augmentation of Clozapine. () Patient's Diet: Regular. Patient's Activity: No restrictions. DC Disposition: The patient to discharge directly to [facility] from inpatient psychiatry. Transportation arranged for him to be transported by [facility]. Recommendations: Patient was advised to please take his medications as prescribed. He was advised to abstain from all substances, to attend daily AA/NA meetings and to obtain a sponsor for support in sobriety. He was advised to complete phone screening for [facility] rehab on 07/08/16 at 11:30AM, at [facility]. He was advised to follow-up with primary care appointment at [facility] on 07/10/16 at 12:30PM to resume INH therapy for latent TB, per Dr. Holder' recommendation. He was additionally advised that in the event of an emergency to call 911/go to nearest emergency department. Patient verbalized understanding of all instructions. Referred To: Post Discharge Referrals Provider Referral Service Date: 07/10/16 Referred To: [[facility]] [DR. BARTLETT] Notes: [facility] [address] [facility] [place] [address] (T)[phone] *Appointment scheduled with PCP Dr. Bartlett on 07/10/16 at 12:30PM. THE [address] [address] (T)[phone] *[facility] to provide transportation directly from hospital today (07/07/16 ). [address] [address] (T)[phone] *Call and complete screening on 07/08/16 at 11:30AM with [employer] To: Dr. Bartlett; [facility]; [facility]
--- NOTE | 2016-07-07 10:50 | SOCIAL WORKER PROG NOTE PSYCH ---
Social Work Progress Note Progress Note Called [facility] this morning, who requested that I refax the referral I did on Thursday. They are able to pick him up for 10am this morning and bring him to the [facility] in [place]. Called and left a message for Rachna at [facility] that Fernando was leaving to go to the [facility] and that his screening would need to be rescheduled since it was for 10am this morning. Fernando looks happy and anxious to leave this morning and requested of staff that he leave a few minutes early to listen to music and smoke a cigarette before he gets his ride. Rachna called and left a message stating she could screen him tomorrow at 11:30am. I relayed this information to the Director at the [facility] and informed him that he was on his way.
== END 2016-07-07 09:59 | DRG 753 ==
LOC: ERH 03:49 → CP SOUTH 06-30 11:41 → ERHI 06-30 11:41 → ENTRNSPT 06-30 13:09 → EDTRNSPTTYP 06-30 13:12 → EDTRNSPTSTS 06-30 13:12 → EDTRNSPTTYP 06-30 13:13 → ENRESERV 06-30 13:20 → CANRESERV 06-30 13:20 → CP SOUTH 06-30 13:20 → EDTRNSPTTYP 06-30 13:26 → CMPBEDREQ 06-30 13:32 → EDTRNSPTTYP 06-30 13:52 → CMPTRNSPT 06-30 13:59 → CP SOUTH 07-02 20:52 → ENPENDDIS 07-07 10:30
PROVIDERS: Emergency Medicine; Student in an Organized Health Care Education/Training Program; ADMIT Psychiatry & Neurology Addiction Medicine
DX: F31.9 Bipolar disorder, unspecified (principal); F15.20 Other stimulant dependence, uncomplicated; F10.20 Alcohol dependence, uncomplicated; F12.20 Cannabis dependence, uncomplicated; Z72.0 Tobacco use; R76.11 Nonspecific reaction to tuberculin skin test without active tuberculosis
CPT/HCPCS: 36415; 73090-LT; 80307; G0463; G0480; J3101; J3490

== ENCOUNTER 2016-08-01 09:02 | Emergency (ER) | payer OTHER ==
[~2016-08-01] VITALS: Ht 182.9 cm; Wt 99.8 kg
[~2016-08-01 09:02] MED LIST changes: +OLANZAPINE10 M1 PO; +TRAZODONE HCL50 M1 PO
[2016-08-01 09:05] VITALS: BP 110/75
--- NOTE | 2016-08-01 09:26 | ED DYSPNEA/ASTHMA COMPLAINT ---
History of Present Illness General Chief Complaint: Dyspnea (COPD, CHF, Other) Stated Complaint: SOB Source: patient Exam Limitations: no limitations Vital Signs & Intake/Output Vital Signs & Intake/Output Vital Signs Date Time Temp Pulse Resp B/P B/P Pulse O2 O2 Flow FiO2 Mean Ox Delivery Rate 08/01 0938 95 08/01 0905 96.7 104 16 110/75 96 Room Air Allergies Coded Allergies: shellfish derived (Intermediate, ANAPHYLAXIS 08/20/15) fluticasone (From FLONASE) (OPPOSITE REACTION - EYES WATER, NOSE IS STUFFY, STUFFY THROA 08/19/15) Reconcile Medications Albuterol Sulfate (Proair Hfa) 90 MCG HFA.AER.AD 2 PUF INH Q4-6 PRN PRN DYSPNEA WITH SPACER Benzonatate (Tessalon Perle) 100 MG CAPSULE 1 CAP PO TID PRN COUGH Codeine Phosphate/Guaifenesi (Cheratussin AC Syrup) 10 MG-100 MG/5 ML LIQUID 10 ML PO Q6 PRN COUGH Escitalopram Oxalate (Lexapro) 10 MG TABLET 10 MG PO DAILY depression/anxiety Take 1 tab po QAM. Methylprednisolone. (Medrol) 4 MG TAB.DS.PK 1 DP PO AD INFLAMMATION 6 on day 1 then reduce by one tablet daily until gone Olanzapine 10 MG TABLET 10 MG PO AT BEDTIME mood stabilization Take 1 tab po QHS. Trazodone HCl 50 MG TABLET 50 MG PO AT BEDTIME insomnia Take 1 tab po QHS. Triage Note: 25 Y/O MALE C/O URI SYMPTOMS SINCE LAST NIGHT. STATES HE FEELS NASAL CONGESTION AND CHEST CONGESTION. "SORE" IN NECK WITH COUGHING FITS. REPORTS SEASONAL ALLERGIES BUT HAS NOT TAKEN MEDS FOR SINCE. STATES PAT WAS RECENTLY TREATED FOR BRONCHITIS. AFEBRILE Triage Nurses Notes Reviewed? yes Onset: Abrupt Duration: day(s): (1) Timing: multiple episodes today Severity: mild, moderate Associated Symptoms: cough, fever HPI: This is a 25-year-old male smoker presents for treatment of sudden onset of cough and shortness of breath that started last night. He states he held had a subjective fever this morning. No productive sputum production. He states he used a friend's cough medication + with some relief but this morning symptoms worse. Denies any recent travel out of the country. Past History Travel History Traveled to [place] past 21 day No Medical History Any Pertinent Medical History? see below for history Neurological: NONE EENT: NONE Cardiovascular: NONE Respiratory: NONE Gastrointestinal: NONE Hepatic: NONE Renal: NONE Musculoskeletal: RIGHT WRIST HARDWARE Psychiatric: alcohol dependence, anxiety, bipolar disease, depression, substance abuse Endocrine: NONE Blood Disorders: NONE Cancer(s): NONE Other Medical Hx: PPD positive History of MRSA: No History of VRE: No History of CDIFF: No Surgical History Surgical History: non-contributory Psychosocial History Who do you live with Family Services at Home None What is your primary language Amharic Tobacco Use: Current Daily Use Daily Tobacco Use Amount/Type: => 5 Cigarettes daily Family History Hx Contributory? No Review of Systems Review of Systems Constitutional: Denies: chills, fever. EENTM: Reports: no symptoms. Respiratory: Reports: cough, short of breath. Denies: sputum production. Cardiovascular: Denies: chest pain. GI: Reports: no symptoms. Genitourinary: Reports: no symptoms. Musculoskeletal: Reports: muscle pain. Denies: muscle stiffness, neck pain. Skin: Reports: no symptoms. Neurological/Psychological: Reports: no symptoms. Hematologic/Endocrine: Denies: bruising, bleeding, polyuria, polydipsia. Immunologic/Allergic: Denies: splenectomy. All Other Systems: Reviewed and Negative Physical Exam Physical Exam General Appearance: well developed/nourished, alert, awake Head: atraumatic, normal appearance Eyes: Bilateral: normal appearance, PERRL, EOMI. Ears, Nose, Throat: normal pharynx, hearing grossly normal Neck: normal inspection, supple, full range of motion Respiratory: decreased breath sounds, wheezing Cardiovascular: regular rate/rhythm Peripheral Pulses: 2+ radial (R), 2+ radial (L) Gastrointestinal: soft, no organomegaly Neurologic/Psych: awake, alert, oriented x 3 Skin: intact, normal color, warm/dry Core Measures ACS in differential dx? No Severe Sepsis Present: No Septic Shock Present: No Progress Differential Diagnosis: bronchitis, pneumonia Plan of Care: Orders Procedure Date/time Status RT ED ORDERS 08/01 09 Active DUONEB, PREDNISONE ORDERED (DENTON MUNOZ,UYEN) Initial ED EKG: none Departure Departure Time of Disposition: 1005 Disposition: HOME OR SELF CARE Condition: Stable Clinical Impression Primary Impression: Bronchitis Secondary Impressions: Tobacco abuse Referrals: PATIENT HAS NO PRIMARY CARE DR (PCP/Family) Additional Instructions: Take the prednisone, Robitussin-AC, Tessalon Perles and use the albuterol inhaler as directed. Your prescriptions are from hospital. Please follow up with her primary care doctor in the office and discuss smoke cessation methods. Return as needed. Departure Forms: Customer Survey General Discharge Information Prescriptions: Current Visit Scripts Methylprednisolone. (Medrol) 1 DP PO AD #1 DP 6 on day 1 then reduce by one tablet daily until gone Albuterol Sulfate (Proair Hfa) 2 PUF INH Q4-6 PRN PRN DYSPNEA #1 INHAL WITH SPACER Benzonatate (Tessalon Perle) 1 CAP PO TID PRN COUGH #30 CAP Codeine Phosphate/Guaifenesi (Cheratussin AC Syrup) 10 ML PO Q6 PRN COUGH #150 ML Critical Care Note Critical Care Note Critical Care Time: non-applicable
[2016-08-01] MEDS ORDERED: CHERATUSSIN AC118 M1 PO (10:07)
[2016-08-01] MEDS ORDERED: PROAIR HFA8.5 GM INH (10:07)
[2016-08-01] MEDS ORDERED: MEDROL4 M2 PO (10:07)
[2016-08-01] MEDS ORDERED: TESSALON PERLE100 M1 PO (10:07)
== END 2016-08-01 10:09 ==
LOC: ERH 09:02
DX: J40 Bronchitis, not specified as acute or chronic (principal); F17.210 Nicotine dependence, cigarettes, uncomplicated
CPT/HCPCS: 1263

== ENCOUNTER 2017-08-21 06:44 | Emergency (ER) | payer OTHER ==
[~2017-08-21] VITALS: Ht 177.8 cm; Wt 102.1 kg
[~2017-08-21 06:44] MED LIST changes: +BACTRIM DS TAB1 EACH PO; +CHERATUSSIN AC118 M1 PO; +KEFLEX500 M1 PO; +MEDROL4 M2 PO; +PROAIR HFA8.5 GM INH; +TESSALON PERLE100 M1 PO; +VENTOLIN HFA18 GM INH; +ZYPREXA2.5 M1 PO
[2017-08-21 06:58] VITALS: BP 157/84
--- NOTE | 2017-08-21 07:13 | ED ANIMAL BITE/WOUND CHECK ---
History of Present Illness General Chief Complaint: Suture Removal/Wound Recheck Stated Complaint: HERE FOR WOUND CHECK RT ARM PIT Source: patient Exam Limitations: no limitations Vital Signs & Intake/Output Vital Signs & Intake/Output Vital Signs Date Time Temp Pulse Resp B/P B/P Pulse O2 O2 Flow FiO2 Mean Ox Delivery Rate 08/21 0658 98.4 88 16 157/84 98 Room Air Room Air Allergies Coded Allergies: shellfish derived (Intermediate, ANAPHYLAXIS 08/20/15) fluticasone (From FLONASE) (PER PT REPORTS FELT DYSPNEA 11/27/16) Reconcile Medications Cephalexin (Keflex) 500 MG CAPSULE 1 CAP PO BID PRN CELLULITIS Olanzapine (Zyprexa) 2.5 MG TABLET 1 TAB PO QPM MENTAL HEALTH (Reported) Olanzapine 10 MG TABLET 1 TAB PO QPM MENTAL HEALTH (Reported) Sulfamethoxazole/Trimethoprim (Bactrim Ds Tablet) 800 MG-160 MG TABLET 1 TAB PO BID ABSCESS Sulfamethoxazole/Trimethoprim (Bactrim Ds Tablet) 800 MG-160 MG TABLET 1 TAB PO BID CELLULITIS Triage Note: 26YO MALE TO 5 FOR WOUND CHECK OF R AXILLA WHERE CYST WAS LANCED 2 D AGO. Triage Nurses Notes Reviewed? yes HPI: Patient presents for evaluation of an abscess I&D site. He was asked to follow- up in the emergency department for a recheck. The packing has already fallen out. Pt feels some itching but no fever or cold symptoms. Past History Travel History Traveled to [place] past 21 day No Medical History Any Pertinent Medical History? 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 No Review of Systems Review of Systems Constitutional: Reports: no symptoms. EENTM: Reports: no symptoms. Respiratory: Reports: no symptoms. Cardiovascular: Reports: no symptoms. GI: Reports: no symptoms. Genitourinary: Reports: no symptoms. Musculoskeletal: Reports: no symptoms. Skin: Reports: see HPI. Neurological/Psychological: Reports: no symptoms. Hematologic/Endocrine: Reports: no symptoms. Immunologic/Allergic: Reports: no symptoms. All Other Systems: Reviewed and Negative Physical Exam Physical Exam General Appearance: see below Comments: right axilla-healing i and d site Progress Differential Diagnosis: abscess, cellulitis Plan of Care: WOUND CARE Departure Departure Disposition: HOME OR SELF CARE Condition: Stable Clinical Impression Primary Impression: Cutaneous abscess of axilla Qualifiers: Laterality: right Qualified Code: L02.411 - Cutaneous abscess of right axilla Referrals: Kip MUNOZ,Roni Gutierrez (PCP/Family) Additional Instructions: continue your current plan of care, return if any concerns. Departure Forms: Customer Survey General Discharge Information
== END 2017-08-21 07:16 ==
LOC: ERH 06:44
DX: Z48.00 Encounter for change or removal of nonsurgical wound dressing (principal)